=== PATIENT | male | born 1970 | race Caucasian/White ===

== ENCOUNTER → 2018-05-24 09:56 | Outpatient (CLI) | payer BC, MEDICAID, SELFPAY ==
--- NOTE | 2018-05-24 10:45 | MRI_ITS ---
STUDY: MRI BRAIN WITH AND WITHOUT CONTRAST (ATTENTION INTERNAL AUDITORY CANALS - I.A.C.'s) REASON FOR EXAM: Male, 48 years old. Tinnitus right ear, dizzy, s/p concussion 1 year ago. TECHNIQUE: Standardized multiplanar fat and water weighted pulse sequences were obtained. 8 ml of Gadavist contrast material was administered intravenously for the contrast portion of the examination. COMPARISON: March 01, 2009 FINDINGS: Normal bilateral temporal bones. Normal bilateral internal auditory canals. There is no demonstrated intracanalicular or cisternal vestibular schwannoma (acoustic neuroma). There is no enhancement of the bilateral VIIth or VIIIth cranial nerves. Normal bilateral cochlea, vestibules and semicircular canals. Normal size of the ventricles and extra-axial spaces for the patient's age. Normal white matter tracts of the supratentorial brain. Normal bilateral basal ganglia. Normal thalami. Normal flow voids within the major intracranial circulation suggesting patency by spin echo criteria. Normal venous enhancement. There is no enhancing intra-axial or extra-axial abnormality. There is no extra-axial fluid accumulation. Normal sella turcica, pituitary gland, infundibular stalk, optic chiasm and hypothalamus. Normal tectal plate and pineal gland. Normal midbrain, gerson and medulla. Again noted is the left cerebellar developmental venous anomaly. Normal basal cisterns. No demonstrated orbital abnormality, within the constraints of a routine brain study. Normal visualized paranasal sinuses. Normal calvarium and skull base. Normal visualized soft tissue structures. Normal visualized upper cervical spine. MRI/Brain W/WO Contrast IMPRESSION: There is no demonstrated intracanalicular or cisternal vestibular schwannoma (acoustic neuroma). Electronically Signed: Kirk Castro MD at 11:05 EST Tel , Service support ,
== END ==
PROVIDERS: Family Provider Preventive Medicine Occupational Medicine; PCP Preventive Medicine Occupational Medicine; Referring Provider Otolaryngology; Visit Provider Otolaryngology
DX: H93.19 Tinnitus, unspecified ear (principal)
CPT/HCPCS: 70553; A9585

== ENCOUNTER 2018-06-21 11:48 | Outpatient (RCR) | payer BC, MEDICAID, SELFPAY ==
--- NOTE | 2018-06-21 12:53 | HP.PTEVAL_ITS ---
Patient's Visit Information JULIANNA DEL VALLE III is a 48 year old M referred to Physical Therapy by Kris Cedeño, with a diagnosis of vertigo. Date of Evaluation: 06/21/18 Physical Therapist: Dmitry Renae DPT, OC - Visit Plan Frequency: 1x/Week Duration: 4-6 Weeks Plan: weekly as able to progress VOR and habituation as needed. Pt unable to make it in next week and therapist off the week after so will progress as instructed int he meanitme. Total 4-6 visits. - Subjective Findings: Saw neuro and recommended vestibular therapy. Gets ringing in R ear constant for a year and gets dizzy. Knocked self out a year ago after picking up a hammer and standing up and hitting head on door knocking self out. Once got bearings, got concussion diagnosis. Dizzyness is intermittent, caused by bending over, temperature changes. Sometimes loses balance. Feels loopyheaded all day daily. Gets dizzy for a a time of minute or two. Noticed it lying in bed rolling. Uses cane due to R hip tear and has used it since [place] for hip not for balance. No falls. R hip causes pain that keeps him up as does ringing in the ear. Trying to use white noise. Taking sleeping pills. BROWN now and then for last 6 months, stress makes it worse. Not working due to hip pain, will have surgery 07/25. 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 Can do basic ADLs right now but they take a while. Has one step into back door. - Pain R hip pain. Pain Intensity (Out of 10): 6 Pain Intensity Range: 6 - Objective - B hallpike aminata and roll test , no nystagmus, no dizzyness. C/S AROM WFL. Oculomotor: no nystagmus with gaze or head shake. pursuit are OK. Saccades horiz 20 seconds 3/10 for 20 seconds. VOR horiz 12 seconds 5/10 dizzy for 1 minute, vertical not as bad at 30 seconds. convergence normal. - skew eye deviation. - head thrust. Walks well and is I with trasnfers and gait is R antalgia and cane in R hand and will need until hip surgery. - Balance Scores Functional Gait Assessment Score: 25 % Disability: 16.6700 - Goals Goal 1:: Abolish dizzy feeling Goal Time Frame: 4-6 Weeks Goal 2:: Pt bend and recover without problems. Goal Time Frame: 4-6 Weeks - Rehabilitation Potential Physical Therapy Diagnosis: vertigo hypofunction vs central Rehabilitation Potential: Fair - Anticipated Interventions Patient/Client Instruction: Educate patient on: Condition, Plan of Care For the Purpose of:: To increase tolerance to activity/condition/position Other: to diminish dizzynes. Comment: habituiation and adapatation ex. For the Purpose of:: To improve muscle performance and motor function, To improve safety Other: to diminish dizzyness. Thank you for the opportunity to evaluate your patient. For Medicare and Medicare HMO plans, please review the plan of care and approve it. It will need to be FAXED BACK to us at [phone] for Medicare purposes. For Medicare only, by signing this I certify the plan of care. Please let me know if there are questions or concerns regarding this plan of care. Physician Signature: Date:
--- NOTE | 2018-09-05 08:06 | HP.PT.NRP ---
HP - Discharge Summary (1) - Patient Information JULIANNA DEL VALLE III was seen in my office for initial evaluation on 06/21/18. The following Plan of Care was established for this patient: Initial Frequency: 1x/Week Initial Duration: 4-6 Weeks - Anticipated Interventions Patient/Client Instruction: Educate patient on: Condition, Plan of Care For the Purpose of:: To increase tolerance to activity/condition/position Other: to diminish dizzynes. For the Purpose of:: To improve muscle performance and motor function, To improve safety Other: to diminish dizzyness. This patient was last seen in our office 06/21/18. Pertinent comments regarding their Physical therapy will appear below: Pt seen one visit for instruction in adaptation exercises. He cancelled his f/u and neglected to reschedule. At this point, it has been over two months adn I will discontinue due to nonattendance. At this point I will be discontinuing this patient from physical therapy. I would be happy to see this patient again in the future if found appropriate by the physician. Thank you! Dmitry Renae, DPT, OCS, CSCS
== END 2018-06-21 19:00 | disposition home or self-care (01) ==
LOC: PT 11:48
PROVIDERS: Family Provider Nurse Practitioner Family; PCP Nurse Practitioner Family; Referring Provider Otolaryngology; Visit Provider Otolaryngology
DX: R42 Dizziness and giddiness (principal)
CPT/HCPCS: 97162

== ENCOUNTER → 2020-05-14 07:15 | Outpatient (CLI) | payer MEDICAID, SELFPAY ==
[2020-05-06 10:48] VITALS: BMI 22.4
--- NOTE | 2020-05-14 07:15 | MRI_ITS ---
STUDY: MRI LUMBAR SPINE WITHOUT CONTRAST REASON FOR EXAM: Male, 50 years old. low back pain, injury 2 years ago TECHNIQUE: Standardized fat and water weighted pulse sequences were obtained in the sagittal and axial planes. COMPARISON: None FINDINGS: Lumbar lordosis preserved. No significant scoliosis. No acute fracture. No acute dislocation. No acute cortical destruction. Conus medullaris terminates normally at the L1 level. Normal paraspinal muscles. Sacrum intact. Normal aorta. Normal retroperitoneum. Congenitally short pedicles at the L3-4, L4-5 and L5-S1 levels contributing to mild central canal and neural foraminal narrowing. Last intervertebral disc will be labeled L5-S1 for the purposes of this examination. T12-L1: Normal endplates. Normal disc height, hydration and morphology. Normal bilateral facet joints. Normal central canal and bilateral lateral recesses. Normal bilateral intervertebral neural foramina. L1-2: Normal endplates. Normal disc height, hydration and morphology. Normal bilateral facet joints. Normal central canal and bilateral lateral recesses. Normal bilateral intervertebral neural foramina. L2-3: Normal endplates. Normal disc height, hydration and morphology. Normal bilateral facet joints. Normal central canal and bilateral lateral recesses. Normal bilateral intervertebral neural foramina. L3-4: Normal endplates. Disc bulge with minimal central canal narrowing. Normal bilateral facet joints. Normal bilateral lateral recesses. Mild neural foraminal narrowing. L4-5: Normal endplates. Minimal disc desiccation. Normal bilateral facet joints. Normal central canal and bilateral lateral recesses. Mild neural foraminal narrowing. L5-S1: Normal endplates. Normal disc height, hydration and morphology. Normal bilateral facet joints. Normal central canal and bilateral lateral recesses. Mild neural foraminal narrowing. MRI/Spine Lumbar (Routine) IMPRESSION: Intervertebral disc disease with mild central canal narrowing at L3-4 Mild neural foraminal narrowing at the L3-4 through L5-S1 levels Congenitally short pedicles contributing to mild central canal and neural foraminal narrowing Electronically Signed: Dmitry Patel DO at 9:22 EST Tel , Service support ,
== END ==
PROVIDERS: PCP Nurse Practitioner Family; Referring Provider Orthopaedic Surgery; Visit Provider Orthopaedic Surgery
DX: M54.5 Low back pain (principal); M54.16 Radiculopathy, lumbar region
CPT/HCPCS: 72148

== ENCOUNTER → 2021-12-30 | Outpatient (CLI) | payer MEDICAID, SELFPAY ==
--- NOTE | 2021-12-30 10:23 | MRI_ITS ---
STUDY: EXAMINATION - MRV BRAIN WITH CONTRAST REASON FOR EXAM: Male, 51 years old. cerebellar developmental venous malformation -- Perform head MRV with constrast (CPT 94478) TECHNIQUE: 3D [id number]-id-nbpeux (TOF) imaging was performed in a nabila MRI scanner, following administration of 17ml Dotarem via IV. COMPARISON: MRI of the brain dated DECEMBER 30, 2021 FINDINGS: Mildly to moderately dilated draining vein in the medial and anterior superior aspect of the left cerebellar lobe is associated with a tuft of smaller abnormally connected veins and ultimately connects to a draining cortical vein on the lateral aspect of the left parietal lobe is consistent with a venous malformation/venous angioma. Normal flow within the superior sagittal sinus. Normal flow within the superficial cortical veins. Normal flow within the paired internal cerebral veins, vein of Tony and straight sinus. Normal flow within the bilateral transverse and sigmoid sinuses. Normal flow within the bilateral jugular bulbs. MRI/MRA Head ONLY WITH Contrast IMPRESSION: 1. Mildly to moderately dilated draining vein in the medial and anterior superior aspect of the left cerebellar lobe is associated with a tuft of smaller abnormally connected veins and ultimately connects to a draining cortical vein on the lateral aspect of the left parietal lobe is consistent with a venous malformation/venous angioma. Electronically Signed: Peter Laguna MD at 15:07 EDT ,
--- NOTE | 2021-12-30 10:23 | MRI_ITS ---
STUDY: MRI BRAIN WITH AND WITHOUT CONTRAST REASON FOR EXAM: Male, 51 years old. Migraine headache; history TIA; venous malformatio -- Suspect venous malformation is venous angioma TECHNIQUE: Standardized multiplanar fat and water weighted pulse sequences were obtained. 17ml Dotarem via IV was administered for the contrast portion of the examination. COMPARISON: MRI of the brain dated May 24, 2018. MRV of the brain dated DECEMBER 30, 2021 FINDINGS: Small tuft of abnormally connected and dilated veins in the anterior medial aspect of the left cerebellar lobe demonstrates enhancement on the postcontrast portion of the study and is consistent with a venous angioma/malformation. The veins involving a 1.45 cm region of the left cerebellar lobe (see images through series 10. Normal size of the ventricles and extra-axial spaces for the patient''s age. There are a limited number of small white matter hyperintensities, distributed throughout the deep white matter tracts of the cerebral hemispheres, consistent with mild chronic white matter ischemic changes. There is no evidence for recent intracranial ischemia or other cause of cytotoxic edema on diffusion weighted imaging (DWI). Normal T2* images of the brain without demonstrated susceptibility artifact. There is no demonstrated hemosiderin stain. Normal bilateral basal ganglia. Normal thalami. There is no extra-axial fluid accumulation. Normal flow voids within the major intracranial circulation suggesting patency by spin echo criteria. Normal venous enhancement. There is no enhancing intra-axial or extra-axial abnormality. Normal sella turcica, pituitary gland, infundibular stalk, optic chiasm and hypothalamus. Normal tectal plate and pineal gland. Normal midbrain, gerson and medulla. Normal cerebellum. Normal basal cisterns. Normal bilateral temporal bones. Normal bilateral internal auditory canals. No demonstrated orbital abnormality, within the constraints of a routine brain study. Normal visualized paranasal sinuses. Normal calvarium and skull base. Normal visualized soft tissue structures. Normal visualized upper cervical spine. MRI/Brain W/WO Contrast IMPRESSION: 1. Small tuft of abnormally connected and dilated veins in the anterior medial aspect of the left cerebellar lobe demonstrates enhancement on the postcontrast portion of the study and is consistent with a venous angioma/malformation. The veins involving a 1.45 cm region of the left cerebellar lobe (see images through series 10. Electronically Signed: Peter Laguna MD at 15:08 EDT ,
--- NOTE | 2021-12-30 10:23 | MRI_ITS ---
STUDY: MRA OF THE HEAD WITH AND WITHOUT CONTRAST REASON FOR EXAM: Male, 51 years old. cerebellar developmental venous malformation -- CPT code 74695 TECHNIQUE: 3-D cuxn-ze-fyldel (TOF) imaging was performed with MIPs. IV 17ml Dotarem was administered for the contrast portion of this study. COMPARISON: MRI and MRV of the brain dated DECEMBER 30, 2021. FINDINGS: Normal bilateral petrous carotid arteries. Normal right cavernous carotid artery with a normal supraclinoid bifurcation. Normal left cavernous carotid artery with a normal supraclinoid bifurcation. Normal right A1 segments of the anterior cerebral artery. Normal left A1 segments of the anterior cerebral artery. Normal intact anterior communicating artery (ACOM). Normal bilateral A2 segments of the anterior cerebral arteries. Normal right M1 and M2 segments of the middle cerebral arteries, with a normal M1 bifurcation. Normal left M1 and M2 segments of the middle cerebral arteries, with a normal M1 bifurcation. Normal right posterior communicating artery (PCOM). Normal left posterior communicating artery (PCOM). Normal bilateral vertebral arteries. Normal basilar artery with a normal basilar bifurcation. The visualized bilateral superior cerebellar (SCA) arteries are normal. Normal bilateral P1, P2 and visualized P3 segments of the posterior cerebral arteries. There is no demonstrated aneurysm of the [place]. There is no major vessel occlusion or hemodynamically significant stenosis. There is no demonstrated abnormality of the visualized brain. Mildly to moderately dilated draining vein in the medial and anterior superior aspect of the left cerebellar lobe is associated with a tuft of smaller abnormally connected veins and ultimately connects to a draining cortical vein on the lateral aspect of the left parietal lobe is consistent with a venous malformation/venous angioma. MRI/MRA Head ONLY WITH & W/O Cont IMPRESSION: 1. Normal [place] without a demonstrated aneurysm or hemodynamically significant stenosis. 2. Mildly to moderately dilated draining vein in the medial and anterior superior aspect of the left cerebellar lobe is associated with a tuft of smaller abnormally connected veins and ultimately connects to a draining cortical vein on the lateral aspect of the left parietal lobe is consistent with a venous malformation/venous angioma. 3. No demonstrated arteriovenous malformation. Electronically Signed: Peter Laguna MD at 15:15 EDT ,
== END | disposition home or self-care (01) ==
LOC: MRI 10:18
PROVIDERS: PCP Nurse Practitioner Family; Referring Provider Psychiatry & Neurology Neurology; Visit Provider Psychiatry & Neurology Neurology
DX: D18.02 Hemangioma of intracranial structures (principal); G45.9 Transient cerebral ischemic attack, unspecified; G43.009 Migraine without aura, not intractable, without status migrainosus
CPT/HCPCS: 70545; 70546; 70553; A9575

== ENCOUNTER → 2022-01-01 | Outpatient (CLI) | payer MEDICAID, SELFPAY ==
[2022-01-01 12:25] LABS: Erythrocyte Sedimentation Rate 13 mm/hr (0-20)
[2022-01-01 13:00] LABS: Cholesterol 155 mg/dL (200); High Density Lipoprotein 90 mg/dL; Triglycerides 78 mg/dL; Very Low Density Lipoprotein 16 mg/dL (5-40)
[2022-01-02 13:07] LABS: ANTINUCLEAR ANTIBODIES DIRECT Negative (Negative)
[2022-01-07 13:07] LABS: Antithrombin 3 Function 68 % (75-135); Complement C3 111 mg/dL (82-167); Dilute Prothrombin Time (dPT) 30.5 sec (0.0-47.6); Dilute Russell Viper Venom 28.4 sec (0.0-47.0); PTT-LA 31.6 sec (0.0-51.9); Protein C Antigen 78 % (60-150); Protein S, Free 78 % (61-136); Thrombin Time 17.5 sec (0.0-23.0); dPT Confirm Ratio 1.11 Ratio (0.00-1.34)
[2022-01-07 17:19] LABS: Anti-Cardiolipin Ab, IgA, Qn < 9 APL U/mL (0-11); Anti-Cardiolipin Ab, IgG, Qn < 9 GPL U/mL (0-14); Anti-Cardiolipin Ab, IgM, Qn 16 MPL U/mL (0-12); Anti-Thrombin 3 AG, Immunol 53 % (72-124); Complement CH50 45 U/mL (>41); Interpretation Comment: (.); Protein C, Functional 78 % (73-180); Protein S, Funtional 67 % (63-140); Protein S, Total 63 % (60-150)
== END | disposition home or self-care (01) ==
LOC: MTLAB 10:42
PROVIDERS: PCP Nurse Practitioner Family; Referring Provider Nurse Practitioner Family; Visit Provider Nurse Practitioner Family
DX: G45.9 Transient cerebral ischemic attack, unspecified (principal)
CPT/HCPCS: 36415; 80061; 81240; 81241; 85300; 85301; 85302; 85303; 85305; 85306; 85652; 86038; 86147; 86160; 86162; 86225; 86235

== ENCOUNTER → 2023-01-25 | Outpatient (CLI) | payer MEDICAID, SELFPAY ==
--- NOTE | 2023-01-25 14:46 | CT_ITS ---
INDICATION: Sinus Congestion; R Facial Paresthesias EXAMINATION: CT SINUSES - CT Sinuses W/O Contrast Injection TECHNIQUE: Helically acquired images were obtained of the paranasal sinuses. A radiation dose optimization technique was used for this scan. IV Contrast dosage and agent: None RADIATION DOSAGE (If Supplied By Facility): CTDIvol = ( 33.06 ) mGy, DLP = ( 842.11 ) mGycm COMPARISON: MRI brain December 30, 2021 FINDINGS: FRONTAL SINUSES AND RECESSES: Clear. ETHMOID AIR CELLS: Clear. MAXILLARY SINUSES: Trace inferior mucoperiosteal thickening. OSTIOMEATAL COMPLEXES: Clear and normally formed. SPHENOID SINUSES: Clear. SPHENOETHMOIDAL RECESSES: Clear. ANCILLARY FINDINGS: NASAL TURBINATES: Unremarkable. NASAL SEPTUM: Mild to moderate rightward convex bowing of the mid to anterior septum. ORBITS: Unremarkable. VISUALIZED DENTITION: No periodontal osseous erosion. ANTERIOR CRANIAL FOSSA: Unremarkable. Incidental note of degenerative changes in the cervical spine, particularly involving the left C2-3 and C3-[address]/Sinus/Facial Bone IMPRESSION: Trace mucoperiosteal thickening in the bilateral maxillary antra. The paranasal sinuses are otherwise clear. Electronically Signed: Alden Guzman MD at 7:42 EDT Reading Location ID and State: [id number] / Unknown , Service support ,
== END | disposition home or self-care (01) ==
LOC: CT 14:45
PROVIDERS: PCP Nurse Practitioner Family; Referring Provider Psychiatry & Neurology Neurology; Visit Provider Psychiatry & Neurology Neurology
DX: R09.81 Nasal congestion (principal); R20.2 Paresthesia of skin
CPT/HCPCS: 70486

== ENCOUNTER → 2023-02-10 | Outpatient (CLI) | payer MEDICAID, SELFPAY ==
[2023-02-10 16:23] LABS: Platelet Count 284 K/mm3 (150-450); RET-HE 34.4 pg (30-35); Reticulocyte Count 1.56 % (0.5-1.5)
[2023-02-10 16:29] LABS: International Normalized Ratio 0.9; Prothrombin Time (Protime)PT. 12.1 SECONDS (11.7-14.9)
[2023-02-10 16:42] LABS: Erythrocyte Sedimentation Rate 10 mm/hr (0-20)
[2023-02-10 17:17] LABS: Amylase 44 U/L (25-115); CRP < 2.90 mg/L (0.0-3.0); Ferritin 34 ng/mL (26-388); Iron 120 ug/dL (65-175); Iron Binding Capacity,Total 423 ug/dL (250-450); LDH 175 U/L (87-241); Lipase 47 U/L (13-75); Thyroid Stim Hormone (TSH) 0.57 uIU/mL (0.358-3.74)
[2023-02-14 03:06] LABS: Anti-Centromere B Ab <0.2 AI (0.0-0.9); Anti-Chromatin <0.2 AI (0.0-0.9); Anti-Jo <0.2 AI (0.0-0.9); Anti-Scleroderma-70 AB <0.2 AI (0.0-0.9); Anti-dsDNA Ab <1 IU/mL (0-9); Beef <0.10 kU/L (Class 0); Chocolate <0.10 kU/L (Class 0); Clam <0.10 kU/L (Class 0); Codfish <0.10 kU/L (Class 0); Corn <0.10 kU/L (Class 0); Egg, White <0.10 kU/L (Class 0); Egg, Whole <0.10 kU/L (Class 0); Milk (Cow) <0.10 kU/L (Class 0); Peanut <0.10 kU/L (Class 0); Pork <0.10 kU/L (Class 0); RNP Ab <0.2 AI (0.0-0.9); SCALLOP <0.10 kU/L (Class 0); SESAME SEED <0.10 kU/L (Class 0); SJOGREN'S Anti-SS-A test < 0.2 AI (0.0-0.9); SJOGREN'S Anti-SS-B test < 0.2 AI (0.0-0.9); Shrimp <0.10 kU/L (Class 0); Smith Ab <0.2 AI (0.0-0.9); Soybean <0.10 kU/L (Class 0); Walnut, (Food) <0.10 kU/L (Class 0); Wheat <0.10 kU/L (Class 0)
[2023-02-15 17:07] LABS: Albumin 4.1 g/dL (2.9-4.4); Alpha-1-Globulins 0.2 g/dL (0.0-0.4); Alpha-2-Globulins 0.7 g/dL (0.4-1.0); Endomysial Antibody IgA Negative (Negative); Gamma Globulin 0.9 g/dL (0.4-1.8); Gastrin, Serum 58 pg/mL (0-115); Haptoglobin 143 mg/dL (29-370); Immunoglobulin A 129 mg/dL (90-386); Immunoglobulin G 569 mg/dL (603-1613); Immunoglobulin M 524 mg/dL (20-172); PROEL- TOTAL PROTEIN 6.9 g/dL (6.0-8.5); t-Transglutaminase IgA <2 U/mL (0-3)
== END | disposition home or self-care (01) ==
PROVIDERS: PCP Nurse Practitioner Family; Referring Provider Internal Medicine Gastroenterology; Visit Provider Internal Medicine Gastroenterology
DX: R19.7 Diarrhea, unspecified (principal)
CPT/HCPCS: 36415; 82150; 82728; 82784; 82941; 83010; 83516; 83540; 83550; 83615; 83690; 84165; 84443; 85045; 85610; 85652; 86003; 86005; 86140; 86225; 86235; 86255; 86334

== ENCOUNTER → 2023-02-15 | Outpatient (CLI) | payer MEDICAID, SELFPAY ==
[2023-02-19 13:08] LABS: Pancreatic Elastase, Fecal 54 (>200)
[2023-02-22 18:07] LABS: Calprotectin, Stool 12 ug/g (0-120); Fats, Neutral Normal (.); Fats, Total Normal (.)
== END | disposition home or self-care (01) ==
PROVIDERS: PCP Nurse Practitioner Family; Referring Provider Internal Medicine Gastroenterology; Visit Provider Internal Medicine Gastroenterology
DX: K58.0 Irritable bowel syndrome with diarrhea (principal)
CPT/HCPCS: 84110; 87493; 81050; 82274; 82653; 82705; 83630; 83993; 87506

== ENCOUNTER 2023-03-29 17:41 | Emergency (ER) | payer MEDICAID, SELFPAY ==
[2023-03-29 17:42] VITALS: BP 137/90; PULSE 93; RESP 18; TEMP 36.1; O2SAT 99; BMI 23.5
[2023-03-29 17:45] VITALS: RESP 14
--- NOTE | 2023-03-29 18:05 | EX.ED.UPPERE ---
HPI History of Present Illness HPI Narrative: Left hand injury along the metacarpal of the left small finger. Occurred about an hour ago. Patient [id number]. He was adjusting his spring on a garage door when a Lego hit him in his left hand causing a laceration along the metacarpal left small finger. Denies any other injuries. Tetanus up-to-date. Chief Complaint: Laceration Informant: patient and family Occured/Mechanism Mechanism/Context: Yes injury and Yes blunt trauma Onset/Context/Timing Onset: Hours Context: Sudden Onset Timing: Continuous Quality of Pain: Sharp Current Severity: Mild Maximum Severity: Mild Associated Symptoms Associated Symptoms: Negative for Parasthesia, Weakness or Loss of Funtion Narrative Narrative: 52-year-old male [id number] was adjusting a garage spring for his daughter at her home when it let go injuring his left hand and causing a laceration along the metacarpal of the left small finger. Tetanus Immunization: <5 years Prior similar symptoms: No Recent Illness/Hospitalization: No PFSH PFSH Medical History Abdominal cramping Alcohol abuse Anticardiolipin antibody positive Antithrombin 3 deficiency Anxiety Back problem Bone fracture Carotid atherosclerosis Depression Diarrhea Dysphagia Elevated liver enzymes Gastric reflux Headache Hearing problem High cholesterol Hip pain Hypertension Hypoglycemia IBS (irritable bowel syndrome) MGUS (monoclonal gammopathy of unknown significance) Migraines Proteinuria rotator cuff surgery, left TIA (transient ischemic attack) Tinnitus Home Medications eluxadoline 100 mg tablet 100 mg PO BID 05/06/20 [History Last Taken Unknown] hydroxyzine HCl 25 mg tablet 25 mg PO TID PRN sinus congestion/headache #90 tabs 11/18/22 [Rx Last Taken Unknown] isvwsh-ihhilgbp-qcjqbwb 40,000-126,000-168,000 unit capsule, delay rel (Zenpep) 1 cap PO BID #330 caps 03/08/23 [Rx Last Taken Unknown] rifaximin 550 mg tablet (Xifaxan) 550 mg PO TID #42 tabs 03/08/23 [Rx Last Taken Unknown] oxcarbazepine 150 mg tablet 150 mg PO BID #60 tabs 03/25/23 [Rx Last Taken Unknown] Allergy/AdvReac Type Severity Reaction Status Date / Time bee venom protein (honey bee) Allergy Severe Anaphylaxis Verified 03/29/23 17:43 [bees] cat dander Allergy Anaphylaxis Verified 03/29/23 17:43 procaine HCl [From Novocain] AdvReac Vomiting Verified 03/29/23 17:43 Family History Father Lung cancer Alcohol abuse Mother Cancer Surgical History H/O inguinal hernia repair H/O: knee surgery History of hip surgery History of rotator cuff surgery Normal colonoscopy (~04/22/18) ulnar nerve surgery Social History household members: children housing: house current occupational status: employed Smoking Status: Former smoker pack-years: 25 second hand exposure: No alcohol intake: current alcohol intake frequency: 3 or more drinks per day Alcohol type: beer details: daily substance use type: does not use what type of physical activity do you participate in: none blair/sikhism: Other seatbelt use: sometimes ROS ROS ED ROS Narrative No recent illness. Review of Systems ROS Unobtainable: Denies due to encephalopathy Constitutional Constitutional ED: Denies chills or fever(s) Eyes Eyes: Denies blurry vision ENT ENT ED: Denies ear pain Cardiovascular Cardiovascular: Denies chest pain Respiratory/Chest Respiratory/Chest: Denies cough or dyspnea Gastrointestinal Gastrointestinal: Denies abdominal pain Genitourinary Genitourinary ED: Denies dysuria or hematuria Musculoskeletal Musculoskeletal: Denies back pain Integumentary Denies abscess Psychiatric Psychiatric: Denies anxiety Endocrine Endocrinology: Denies cold intolerance Hematologic/Lymphatic Hematologic/Lymphatic: Denies easy bleeding or easy bruising Allergic/Immunologic Allergic/Immunologic ED: Denies mouth swelling, tongue swelling or urticaria EXAM Physical Exam Narrative Exam Narrative: 52-year-old male vital signs stable afebrile. HEENT exam unremarkable. Neck nontender. Back nontender. Lungs clear to auscultation. Heart regular rhythm no murmur. Rate about 90. Chest wall and ribs nontender. Abdomen soft nontender. Moving all 4 extremities. Neurovascular intact. Normal range of motion. Left hand specifically has tenderness along the proximal left small finger and metacarpal left small finger. He has a 2+ inch laceration along the medial side of his left hand lateral to the palm. No active bleeding. It will need repaired. Tender along the area. No infection or foreign body noted. Normal flexion extension. Normal sensation of the digits of the hand. Neurologically is awake and alert with no focal motor or sensory deficits. Const Vital Signs: 03/29/23 17:42 03/29/23 17:45 Temperature 97 F L Temperature Source Temporal Pulse Rate 93 Respiratory Rate 18 14 Blood Pressure 137/90 H Blood Pressure Mean 105 Pulse Ox 99 Oxygen Delivery Method Room Air Positive well nourished and well developed; Negative for obese, cachectic, contractures or unkempt General Appearance ED: well developed and NAD; Negative for unkempt, cachectic, contractures, cyanotic or diaphoretic Nutritional Appearance: Negative for cachectic or obese HEENT Reports moist mucous membranes normocephalic and atraumatic; Negative for trauma or tenderness Eyes PERRL and EOMs intact bilaterally General Eye ED: Negative for other Neck full ROM and supple General: Negative for tenderness Lymph Lymphatic: Negative for other Chest Wall inspection of chest normal and palpation of chest normal Chest: Negative for other Resp normal respiratory effort and clear to auscultation bilaterally Effort and Inspection: Negative for pain with movement Auscultation: Negative for rales, rhonchi or wheezes Cardio regular rate, regular rhythm, S1 normal heart sound, S2 normal heart sound and no murmurs Rate: Negative for bradycardia or tachycardic Rhythm: Negative for abnormal rhythm GI non-tender, non-distended and no masses Inspection: Negative for abdominal distention Auscultation: normoactive bowel sounds Palpation: soft; Negative for tender or guarding Bladder / Kidney Exam: No other Back/Spine no CVA tenderness General Back: Negative for CVA tenderness Cervical Spine: Negative for cervical spine tenderness Thoracic Spine / Upper Back: Negative for thoracic spinal tenderness Lumbar Spine / Lower Back: Negative for lumbar spinal tenderness Extremity normal to inspection and full ROM Extremity Narrative: Except left hand. Laceration on the medial side of his left hand long metacarpal of the small finger. Full flexion extension. Tender to the metacarpal and proximal phalanx. No deformity. Normal sensation. No active bleeding. No signs of infection. No foreign body. General Extremety ED: Negative for edema General Extremity: Negative for edema Neuro oriented x3, CN's II-XII intact bilaterally, moves all extremities, no focal motor deficits and no sensory deficits noted Sensorium / Orientation: alert, oriented to person, oriented to place and oriented to time; Negative for orientation impaired, lethargic or stuporous Motor Exam: strength 5/5 throughout Psych mental status grossly normal Appearance: Negative for unkempt Attitude: No agitated Mood & Affect: Negative for depressed, anxious or tearful Skin General Skin Exam: Negative for petechiae Lesions: no lesions Rashes: no rashes Trauma: laceration MDM MDM MDM Narrative Medical decision making narrative: 52-year-old male with a laceration to the left small finger along the metacarpal. X-ray being obtained to valuate for possible fracture. His tetanus is up-to-date. History & Record Review Discussion w/independent historian: Patient and Family Radiography Diagnostic Testing: Left hand x-ray, 3 views, interpreted by myself shows no acute fracture. No foreign body. No dislocation. Procedures Lacerations Left hand laceration repair:: Length: 2 in Depth: Sub Q Shape: Linear Laceration repair: Irrigated, Lidocaine, Local and Skin sutures Number of Sutures/Left Hand: 4 Suture Information: Ethilon, Simple and 4-0 Comment: Left small finger laceration along the metacarpal. Approximately 1/2 to 2 inches. Local anesthetized plain lidocaine. Cleaned with Shur-Clens. Washed and irrigated with saline. Explored. Involve the skin and subcu tissue. Closed using 4 simple erupted 4-0 Ethilon sutures. Proper hemostasis and wound closure obtained. Patient tolerated procedure well. He was instructed on wound care and suture removal in 10 days. Discharge Plan Triage Chief Complaint: Laceration ED Provider: Dwight Julio Dx/Rx/DC Orders Clinical Impression: Laceration of hand, left Instructions: ED Laceration, Hand: All Closures Prescriptions: No Action eluxadoline 100 mg tablet 100 mg PO BID Patient Comments: take 1 tablet by mouth twice a day with food for IBS hydroxyzine HCl 25 mg tablet 25 mg PO TID PRN (Reason: sinus congestion/headache) Qty: 90 5RF oxcarbazepine 150 mg tablet 150 mg PO BID Qty: 60 5RF Zenpep 40,000-126,000- 168,000 unit capsule,delayed release(DR/EC) 1 cap PO BID Qty: 330 0RF Rx Instructions: take 1-2 with snacks and 2-3 with meals. max of 3 meals a day and 1 snack. Xifaxan 550 mg tablet 550 mg PO TID Qty: 42 0RF Primary Care Provider: Sandy Saleh NP Referrals: Sandy Saleh NP, RN [facility] [Primary Care Provider] - 10 Day for suture removal Activity Restrictions/Additional Instructions: Ice and elevate. Motrin and Tylenol for pain. Stitches out in 10 days. Watch for any signs of infection such as redness, pus, fever, swelling or streaks of seen return. Disposition Disposition: Home, Self Care
--- NOTE | 2023-03-29 18:08 | RAD_ITS ---
INDICATION: trauma EXAMINATION/TECHNIQUE: X-RAY - LEFT XR Hand Min 3 Views 3 VIEWS COMPARISON: FINDINGS: No acute fracture or dislocation. No destructive bone changes. Joint spaces are well-maintained. Normal alignment. Soft tissues are unremarkable. No radiopaque foreign body or soft tissue gas. RAD/Hand Min 3 Views IMPRESSION: Negative. Electronically Signed: Torrie Vera MD at 18:38 EDT [place] Location ID and State: [id number] / Tel , Service support ,
[2023-03-29] MEDS: Lidocaine 1% (20 ml mdv) 20 ML Vial 10 ML INFILT (18:09)
[2023-03-29] MEDS: Ibuprofen 600 MG Tablet PO (18:38)
[2023-03-29 18:44] VITALS: PULSE 69; RESP 17; O2SAT 98
== END 2023-03-29 18:51 | disposition home or self-care (01) ==
LOC: ED 18:48
PROVIDERS: Emergency Provider Emergency Medicine; PCP Nurse Practitioner Family; Visit Provider Emergency Medicine
DX: S61.412A Laceration without foreign body of left hand, initial encounter (principal); Z87.891 Personal history of nicotine dependence; X58.XXXA Exposure to other specified factors, initial encounter; Z86.73 Personal history of transient ischemic attack (TIA), and cerebral infarction without residual deficits
CPT/HCPCS: 12001; 73130; 99283

== ENCOUNTER 2023-04-29 07:56 | Day surgery (SDC) | payer MEDICAID, SELFPAY ==
[2023-04-29 08:32] VITALS: BP 132/97; PULSE 68; RESP 18; TEMP 36.4; O2SAT 98; BMI 24.0
[2023-04-29] MEDS: Lactated Ringers 1,000 ML 15 ML IV (08:39)
--- NOTE | 2023-04-29 09:15 | COLBX_PTH ---
PATIENT: JULIANNA DEL VALLE III LOC: EN U#:[id number] AGE/SX: 52/M ROOM: RE04/29/[address]: Dr. Harmeet Sauceda DO : 1970 BED: DIS: 04/29/2023 SPEC #: [id number] RECD: 04/29/23 12:10 STATUS: DELFINA REEdith #: [id number] ROBERTO: 04/29/23 09:[address]: Harmeet Sauceda DEPT: SURGICAL PATHOLOGY RECD BY: Sheirce Frankel ENTERED: 04/29/23 13:01 SP TYPE: COLON BX OT DR: Sandy Saleh, [employer] Tissues: A - Ileum, NOS B - COLON BIOPSY Procedures: Surgery Specimen Level IV HEADER OPERATION: Colonoscopy with biopsy PRE-OP DIAGNOSIS: Diarrhea TISSUE SUBMITTED: A - Terminal ileum biopsy, B - Random colon biopsy MICROSCOPIC DIAGNOSIS A. Terminal ileum, biopsy: Fragments of small intestinal mucosa, no pathologic diagnosis. B. Colon, random biopsy: Fragments of colonic mucosa, no pathologic diagnosis. VALE:pavithra 04/30/2023 MICROSCOPIC DESCRIPTION Slides are reviewed. GROSS DESCRIPTION A - Received in fixative is one container labeled with the patient's name and designated terminal ileum biopsy. The specimen consists of two irregular fragments of light delacruz soft tissue that in aggregate measure 0.6 x 0.3 x 0.1 cm. The specimen is totally submitted in one cassette. B - Received in fixative is one container labeled with the patient's name and designated random colon biopsy. The specimen consists of multiple irregular fragments of light delacruz soft tissue that in aggregate measure 2.0 x 0.8 x 0.1 cm. The specimen is totally submitted in one cassette. / VALE:pavithra 04/29/2023 TC:4 [facility]: [id number] x2
--- NOTE | 2023-04-29 09:23 | HP.PCM_ITS ---
History and Physical Date of Admission: 04/29/23 JULIANNA DEL VALLE, is a 52 M who presents to the office today for initial consult. PCP OV 11.10.22 to discuss previously diagnosed IBS-D. Previously established with GI who started him on medication (loperamide and viberzi) and reached a point where they did not feel they could help further. He does not want to resume SSRI. ?EGD 11.29.19?OSH Large Schatzki ring, balloon dilation, pathology nonspecific reactive changes.?Biochemical 08.25.22?CMP, LFT, lipids? ? Pt diagnosed with IBS-D 2 years ago. Currently taking Loperamide and Viberzi. Does not have any abdominal pain or cramping on medication but does still have diarrhea a few times a week. Has concerns about fpc effects of Viberzi therefore would like to try another medication. Did have extensive work up years ago that was inconclusive. Does have hx of GERD. Sx controlled with daily omeprazole. ROS Const Constitutional: Positive for headache(s); No fatigue ENT ENT: Positive for headache(s); No difficulty swallowing Gastro GI: Positive for bloating, constipation, diarrhea, heartburn and excessive flatus; No abdominal pain, belching, change in bowel habits, change in stool character, coffee ground emesis, cramping, difficulty swallowing, feeling full early, incontinent of stools, Vomiting blood/hematemesis, Blood in stool, loose stools, Black,tarry stools, nausea/dyspepsia, pain with swallowing, vomiting or other Musc Musculoskeletal: Positive for back pain, Arthritis and restless legs; No joint pain Skin Skin: No yellowing of the eye or itchy eyes Neuro Neurology: Positive for headache(s) and restless legs Psych Psychiatric: Positive for anxiety and No depression Endo Endocrine: No fatigue Aller/Imm Allergy/Immunologic: No itchy eyes Torrey/Lymp Hematologic/Lymphatic: No easy bleeding or easy bruising Exam Const General: cooperative and comfortable Nutritional Appearance: average body habitus and well nourished HENTX Head: normal to inspection Ears: hearing grossly normal bilaterally Nose: external nose normal Face and sinus: normal facial exam Mouth: oral mucosae normal Throat: posterior oropharynx normal Eyes General: appearance normal, both eyes and all related structures Neck Neck: normal visual inspection Chest Chest palpation & inspection: normal inspection of the chest and normal palpation of entire chest wall Resp Effort & Inspection: normal respiratory effort Auscultation: Bilateral: Clear to Auscultation Cardio Palpation: normal PMI Rate: regular rate Rhythm: regular rhythm GI Inspection: normal to inspection Auscultation: normal bowel sounds Percussion: normal to percussion Palpation: no hepatosplenomegaly Skin General: no rashes or lesions noted Neuro General: patient alert Extrem General: normal to inspection Psych Affect: normal affect Quality Reporting Tobacco Screening ([facility] 138) Smoking Status: Former smoker Assessment and Plan Assessment and Plan (1) Diarrhea: Status: Acute Qualifiers: Diarrhea type: functional diarrhea Qualified Code(s): K59.1 - Functional diarrhea Plan: 52-year-old male medical history notable for IBS with diarrhea and dyslipidemia. He is an ex-smoker quit over 10 years earlier. Patient suffered a TIA in May 2020 that manifested with slurred speech, right facial droop and right-sided facial tingling and numbness, right arm heaviness and gait imbalance. His symptoms resolved in less than 24 hours. He had MRI did not show changes to suggest acute intracranial pathology (chronic small vessel cerebrovascular disease was noted) and an incidental cerebellar developmental venous malformation was noted. Since then he has been on low-dose aspirin for stroke prophylaxis and has had no recurrences. He has no prior history of venous thromboembolic disease. There is no known family history of hereditary hypercoagulability although the patient's father prior to passing with lung cancer was on long-term systemic anticoagulation for some vascular disease. He was evaluated by neurology for recurrent headaches possible migraines and a hypercoagulability panel in December 2021 based on the earlier history was obtained that showed 2 main abnormalities: 1. An indeterminate anticardiolipin IgM antibody of 16 (negative less than 13, indeterminate 13-20, high positive over 80). 2. A mildly decreased decreased Antithrombin III He has been diagnosed with IBS with diarrhea after normal colonoscopy approximately 6 years ago. He is being followed by Dr. Grissom. He was placed on Viberzi and Imodium for his constant diarrhea. He said he had stool studies but did not show any signs infection. He also said his colonoscopy was normal without any intraluminal pathology. His weight has been stable. He denies any fevers, arthralgia, arthritis, lower GI bleeding. Differential diagnosis for his diarrhea does include IBS with diarrhea, m alabsorptive diarrhea secondary to celiac disease, small vessel vasculitis, inflammatory bowel disease, microscopic colitis. He will undergo stool testing and biochemical testing. We will also get MR enterography. We will also get IBD SGI from [facility]. He will follow-up after we have the work-up complete for recommendations. Orders: Orders Allergen, Food Profile Today R19.7 - Diarrhea, unspecified Allergen, Rast Food Profile Today R19.7 - Diarrhea, unspecified Ferritin Today R19.7 - Diarrhea, unspecified Iron Binding Capacity,Total Today R19.7 - Diarrhea, unspecified Retic Panel Count Today R19.7 - Diarrhea, unspecified Iron Today R19.7 - Diarrhea, unspecified Haptoglobin Today R19.7 - Diarrhea, unspecified Fecal Fat, Qualitative Today R19.7 - Diarrhea, unspecified Amylase Today R19.7 - Diarrhea, unspecified Lipase Today R19.7 - Diarrhea, unspecified LDH Today R19.7 - Diarrhea, unspecified EDUARDO + Protein Elect, Serum Today R19.7 - Diarrhea, unspecified INGA Comprehensive Panel Today R19.7 - Diarrhea, unspecified Celiac Disease Profile Today R19.7 - Diarrhea, unspecified CRP Today R19.7 - Diarrhea, unspecified Erythrocyte Sed Rate Today R19.7 - Diarrhea, unspecified Prothrombin Time w/INR Today R19.7 - Diarrhea, unspecified ENTERIC PATHOGEN PANEL STOOL Today K58.9 - Irritable bowel syndrome without diarrhea, R19.7 - Diarrhea, unspecified CDIFF (PCR) Today R19.7 - Diarrhea, unspecified Calprotectin, Stool Today R19.7 - Diarrhea, unspecified Pancreatic Elastase, Fecal Today R19.7 - Diarrhea, unspecified Stool Occult Blood iFOB Today R19.7 - Diarrhea, unspecified Stool Lactoferrin/WBC Today K58.9 - Irritable bowel syndrome without diarrhea, R19.7 - Diarrhea, unspecified Thyroid Stim Hormone (TSH) Today R19.7 - Diarrhea, unspecified Miscellaneous Lab Procedure Today R19.7 - Diarrhea, unspecified Gastrin, Serum Today R19.7 - Diarrhea, unspecified Miscellaneous Lab Procedure 2 Today R19.7 - Diarrhea, unspecified I have examined the patient and the H&P has been reviewed. There are no clinical changes since date of exam.
[2023-04-29 09:52] VITALS: BP 107/72; BP 132/97; PULSE 81; RESP 16; TEMP 36.4; O2SAT 99
--- NOTE | 2023-04-29 09:53 | OP.COLON_ITS ---
Patient Name: Michael Noble Procedure Date: 04/29/2023 9:21 AM Date of : 1970 Age: 52 Procedure: Colonoscopy Indications: Screening for colorectal malignant neoplasm Providers: Harmeet Sauceda DO Referring MD: Sandy Saleh Medicines: Monitored Anesthesia Care Patient Profile: This is a 52 year old male. Refer to note in patient chart for documentation of history and physical. Last Colonoscopy: date unknown. Unable to locate last colonoscopy report. Complications: No immediate complications. Procedure: Pre-Anesthesia Assessment: - Prior to the procedure, a History and Physical was performed, and patient medications and allergies were reviewed. The patient is competent. The risks and benefits of the procedure and the sedation options and risks were discussed with the patient. All questions were answered and informed consent was obtained. Patient identification and proposed procedure were verified by the physician in the pre-procedure area. Mental Status Examination: alert and oriented. Airway Examination: normal oropharyngeal airway and neck mobility. Respiratory Examination: clear to auscultation. CV Examination: normal. Prophylactic Antibiotics: The patient does not require prophylactic antibiotics. Prior Anticoagulants: The patient has taken no anticoagulant or antiplatelet agents. ASA Grade Assessment: II - A patient with mild systemic disease. After reviewing the risks and benefits, the patient was deemed in satisfactory condition to undergo the procedure. The anesthesia plan was to use monitored anesthesia care (MAC). Immediately prior to administration of medications, the patient was re-assessed for adequacy to receive sedatives. The heart rate, respiratory rate, oxygen saturations, blood pressure, adequacy of pulmonary ventilation, and response to care were monitored throughout the procedure. The physical status of the patient was re-assessed after the procedure. After I obtained informed consent, the scope was passed under direct vision. Throughout the procedure, the patient's blood pressure, pulse, and oxygen saturations were monitored continuously. The colonoscope was introduced through the anus and advanced to the terminal ileum. The colonoscopy was performed without difficulty. The patient tolerated the procedure well. The quality of the bowel preparation was good. Scope In: 9:29:33 AM Scope Withdrawal Time 0 hours 12 minutes 21 seconds Scope Out: 9:45:28 AM Total Procedure Duration Time 0 hours 15 minutes 55 seconds Findings: The perianal and digital rectal examinations were normal. The transverse colon was moderately redundant. Advancing the scope required changing the patient's position. An area of mildly congested mucosa was found in the recto-sigmoid colon, in the sigmoid colon and in the transverse colon. Biopsies were taken with a cold forceps for histology. Verification of patient identification for the specimen was done. Estimated blood loss was minimal. A localized area of the terminal ileum was congested. Biopsies were taken with a cold forceps for histology. Verification of patient identification for the specimen was done. Estimated blood loss was minimal. A few small-mouthed diverticula were found in the recto-sigmoid colon, sigmoid colon, transverse colon and ascending colon. Impression: - Redundant colon. - Congested mucosa in the recto-sigmoid colon, in the sigmoid colon and in the transverse colon. Biopsied. - Congested mucosa in the terminal ileum. Biopsied. Recommendation: - Discharge patient to home. - Resume previous diet. - Continue present medications. - Await pathology results. - Repeat colonoscopy in 5 years for surveillance based on pathology results. Procedure Code(s): --- Professional --- 24611, Colonoscopy, flexible; with biopsy, single or multiple CPT copyright 2021 [employer]. All rights reserved. The codes documented in this report are preliminary and upon director of vital statistics review may be revised to meet current compliance requirements. Harmeet Sauceda DO 04/29/2023 9:53:16 AM This report has been signed electronically. Number of Addenda: 0 Note Initiated On: 04/29/2023 9:21 AM
--- NOTE | 2023-04-29 09:53 | OP.CCLET_ITS ---
04/29/2023 Sandy Saleh Re : Colonoscopy procedure for Michael Noble Dear Therese This procedure was performed on April. My impressions and recommendations are as follows: Impressions : - Redundant colon. - Congested mucosa in the recto-sigmoid colon, in the sigmoid colon and in the transverse colon. Biopsied. - Congested mucosa in the terminal ileum. Biopsied. Recommendations : - Discharge patient to home. - Resume previous diet. - Continue present medications. - Await pathology results. - Repeat colonoscopy in 5 years for surveillance based on pathology results. My findings are described in the full procedure note, which is enclosed. If I can be of further assistance, please feel free to contact me at . Sincerely, Harmeet Sauceda, 04/29/2023 9:53:16 AM This report has been signed electronically.
[2023-04-29 09:55] VITALS: BP 105/68; BP 132/97; PULSE 68; RESP 16; O2SAT 99
[2023-04-29 10:00] VITALS: BP 107/69; BP 132/97; PULSE 64; RESP 16; O2SAT 100
[2023-04-29 10:04] VITALS: BP 111/82; BP 132/97; PULSE 64; RESP 16; TEMP 37.3; O2SAT 99
[2023-04-29 10:31] VITALS: BP 132/97
== END 2023-04-29 10:36 | disposition home or self-care (01) ==
LOC: EN 07:57 → AC 07:58
PROVIDERS: PCP Nurse Practitioner Family; Referring Provider Nurse Practitioner Family; Visit Provider Internal Medicine Gastroenterology
PROC: 0DJD8ZZ Inspection of Lower Intestinal Tract, Via Natural or Artificial Opening Endoscopic (ICD-10-PCS; CPT 45378; principal; 2023-04-29 09:10)
DX: K63.89 Other specified diseases of intestine (principal); R19.7 Diarrhea, unspecified; Q43.8 Other specified congenital malformations of intestine; Z87.891 Personal history of nicotine dependence; G47.30 Sleep apnea, unspecified
CPT/HCPCS: 45380; 88305; J7120

== ENCOUNTER 2023-07-28 14:43 | Emergency (ER) | payer MEDICAID, SELFPAY ==
[2023-07-28 14:46] VITALS: BP 148/96; PULSE 73; RESP 18; TEMP 36.3; O2SAT 100
[2023-07-28 15:55] VITALS: BMI 24.3
[2023-07-28 16:00] VITALS: BP 142/91; PULSE 77; RESP 16; O2SAT 98
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
[2023-07-28] MEDS: Morphine 4 MG/ML Syringe IV (16:35)
[2023-07-28] MEDS: Ondansetron 4 MG/2 ML Vial IV (16:35)
[2023-07-28] MEDS: 0.9% Normal Saline (1000mL) 1,000 ML 150 ML IV (16:35)
[2023-07-28 16:49] LABS: Absolute Lymphocyte Count 1.39 X10^3/uL (0.83-4.51); Basophil# 0.06 X10^3/uL; Basophil% 0.8 % (0-1); Eosinophil# 0.09 X10^3/uL; Eosinophils% 1.3 % (0-5); Hematocrit 43.3 % (40-54); Hemoglobin 14.5 g/dL (13.0-16.5); Lymphocyte # 1.39 X10^3/ul (0.83-4.51); Lymphocyte % 19.5 % (19-41); Mean Corp Hgb Conc 33.5 g/dL (32-36); Mean Corpuscular Hgb 31.3 pg (27.0-32.0); Mean Corpuscular Volume 93.5 fL (80-94); Mean Platelet Vol. 9.3 fl (6.2-12.0); Monocyte# 0.57 X10^3/uL; NRBC Flagged by Analyzer 0 % (0-5); Neutrophil # 4.96 X10^3/uL (2.7-7.7); Neutrophil % 69.8 % (47-70); Platelet Count 269 K/mm3 (150-450); RBC Distribution Width CV 12.1 % (11.6-14.6); RBC Distribution Width SD 41.8 fl (35.1-43.9); Red Blood Count 4.63 M/mm3 (4.6-6.2); White Blood Count 7.1 K/mm3 (4.4-11.0)
[2023-07-28 16:57] LABS: Anion Gap 3 (5-15); BUN 9 mg/dL (7-18); BUN/Creat Ratio 9.9 RATIO (10-20); Chloride 110 mmol/L (98-107); Creatinine, Serum 0.91 mg/dL (0.70-1.30); EST Glomerular Filtration Rate 92 mL/min (>60); Est Glom Filt Rate - Afr Amer 112 mL/min (>60); Estimated Creatinine Clearance 104.87 ml/min; Glucose 94 mg/dL (74-106); Potassium 3.9 mmol/L (3.5-5.1); Sodium Level 141 mmol/L (136-145)
[2023-07-28 17:03] LABS: Prothrombin Time (Protime)PT. 13.1 SECONDS (11.7-14.9)
--- OUTSIDE RECORDS SUMMARY | 2023-07-28 17:07 | XMS RPT_ITS | CCD ---
Author Name Unknown Address [id number] [place] [address] Organization [facility] Care Team Providers Care Router Setter Name Role Phone Thuy Srinivasan Unavailable Unavailable PROVIDER, UNKNOWN Unavailable Unavailable No, PCP Unavailable Unavailable Thuy Srinivasan Unavailable Unavailable PROVIDER, UNKNOWN Unavailable Unavailable No, PCP Unavailable Unavailable Pepe Del Rio Unavailable Unavailable PROVIDER, UNKNOWN Unavailable Unavailable No, PCP Unavailable Unavailable Selvin Lopez Primary Care Provider [phone] Yasmin Villatoro Unavailable Unavailable Sandy Viera Unavailable Unavailable Jeromy Chin PA-C Unavailable Selvin Lopez Primary Care Provider [phone] SANDY DANIEL Primary Care Physician Felicia PT, Marielle Unavailable Unavailable SANDY DANIEL Primary Care Physician Sandy Viera Primary Care Provider [phone] Sandy Viera Primary Care Provider [phone] ADEBAYO BALL Referring Unavailable SANDY VIERA Primary Care Unavailable ANIRUDH VYAS Attending Unavailable SANDY VIERA Primary Care Unavailable ADEBAYO BALL Attending Unavailable SANDY VIERA Primary Care Unavailable KRYSTINA ECHEVARRIA, JOSE Hunter Attending Unavail able SANDY DANIEL Primary Care Unavail able SANDY DANIEL Attending Unavail able MAXIMILIANO PEREIRA SANDY Primary Care Unavail able Allergies Allergy Classification Reported Allergen(s) Allergy Type Date of Onset Reaction(s) Facility (8 sources) [place]; Translations: [procaine] Drug Allergy 8 Nausea And Vomiting [facility] Work Phone: (2 sources) Iodides Propensity to adverse reactions to drug 0 Nausea And Vomiting [facility] Work Phone: (1 source) STINGING INSECTS; Translations: [STINGING INSECTS] allergy to substance 8 anaphylaxis [facility] Work Phone: (1 source) DAIRY; Translations: [DAIRY] food allergy 8 GI issues [facility] Work Phone: (1 source) CAT DANDER; Translations: [CAT DANDER] allergy to substance 8 sneezing [facility] Work Phone: (4 sources) Bee/Wasp/Ant venom Allergy to substance Swelling [facility] (4 sources) Animal Dander Allergy to substance Swelling [facility] (4 sources) Honey bee venom Propensity to adverse reactions 3 [facility] (6 sources) Lactose (non-medical use) Propensity to adverse reactions 3 [facility] (6 sources) Other Propensity to adverse reactions 3 [facility] (2 sources) bee venom Propensity to adverse reactions 3 [facility] (2 sources) Iodinated Contrast Media Drug Intolerance 0 Nausea And Vomiting [facility] Medications Current Medications Medication Drug Class(es) Dates Sig (Normalized) Sig (Original) amylase 949443 unt / lipase 93089 unt / protease [id number] unt delayed release oral capsule (1 source) Start: 04-07-2023 take 1 capsule by mouth four times daily at mealtime Zenpep 40,000 units-126,000 units-168,000 units oral delayed release capsule Dose = 2 cap(s), Oral, QID, with each meal and one w/ snacks. No more than 10 daily, 0 Refill(s) Start Date: 04/07/23 Status: Ordered aspirin 81 mg chewable tablet (3 sources) Platelet Aggregation Inhibitor, Nonsteroidal Anti-inflammatory Drug Start: 05-28-2020 aspirin 81 mg oral tablet, chewable Dose : 81 mg = 1 tab(s), Oral, qDay, 0 Refill(s) Start Date: 05/28/20 Status: Ordered Completed/Discontinued Medications Medication Drug Class(es) Dates Sig (Normalized) Sig (Original) 2 ml dicyclomine hydrochloride 10 mg/ml injection (6 sources) Anticholinergic Start: 10-21-2022 End: 10-21-2022 dicyclomine (Bentyl) injection 20 mg Problems Active Problems Problem Classification Problem Date Documented Da te Episodic/Chronic Alcohol-related disorders (2 sources) Alcohol abuse 04-27-2022 Chronic Anxiety disorders (8 sources) Anxiety; Translations: [Mixed anxiety and depressive disorder] 02-08-2019 Chronic Disorders of lipid metabolism (4 sources) Hyperlipidemia 10-10-2020 Chronic Past or Other Problems Problem Classification Problem Date Documented Da te Episodic/Chronic Abdominal pain (1 source) Generalized abdominal pain; Translations: [Intermittent generalized abdominal pain] Episodic Intestinal infection (4 sources) Viral gastroenteritis; Translations: [Viral intestinal infection, unspecified] Onset: 10-21-2022 Episodic Noninfectious gastroenteritis (1 source) Chronic diarrhea; Translations: [Chronic diarrhea] Episodic Other gastrointestinal disorders (1 source) Heartburn; Translations: [Heartburn] Episodic Other gastrointestinal disorders (1 source) Dysphagia; Translations: [Dysphagia] Episodic Other gastrointestinal disorders (1 source) Personal history of other diseases of the digestive system; Translations: [History of irritable bowel syndrome] Episodic Other non-traumatic joint disorders (1 source) Instability of joint of pelvis; Translations: [Other instability, right hip] Onset: 01-06-2019 01-06-2019 Episodic Other non-traumatic joint disorders (1 source) Femoral acetabular impingement; Translations: [Other specified joint disorders, right hip] Onset: 04-06-2018 04-06-2018 Episodic Other upper respiratory infections (1 source) Upper respiratory infection 04-09-2021 Episodic Screening and history of mental health and substance abuse codes (2 sources) H/O: anxiety state; Translations: [H/O: depression] Episodic Sprains and strains (4 sources) Strain of muscle, fascia and tendon of right hip, initial encounter; Translations: [Strain of muscle of lower limb] Onset: 12-03-2017 02-16-2020 Episodic Unclassified (1 source) Problem Results Test Name Value Interpretation Reference Range Facil ity Vital Signs Date Time Vital Sign Value Performing Clinician Facility 05-18-2023 13:32-0500 Diastolic blood pressure 81 mm[Hg] Anirudh Vyas MD Work Phone: [facility] 05-18-2023 13:32-0500 Heart rate 66 /min Anirudh Vyas MD Work Phone: [facility] 05-18-2023 13:32-0500 Respiratory rate 16 /min Anirudh Vyas MD Work Phone: [facility] 05-18-2023 13:32-0500 SaO2% (BldA) [Mass fraction] 99 % Anirudh Vyas MD Work Phone: [facility] 05-18-2023 13:32-0500 Systolic blood pressure 138 mm[Hg] Anirudh Vyas MD Work Phone: [facility] 05-18-2023 12:54-0500 Body height 185.4 cm Anirudh Vyas MD Work Phone: [facility] 05-18-2023 12:54-0500 Body mass index (BMI) [Ratio] 24.8 kg/m2 Anirudh Vyas MD Work Phone: [facility] 05-18-2023 12:54-0500 Body temperature 98.01 [degF] Anirudh Vyas MD Work Phone: [facility] 05-18-2023 12:54-0500 Body weight 85.28 kg Anirudh Vyas MD Work Phone: [facility] 05-17-2023 15:41-0500 Body height 185.4 cm JOSE FLAHERTY MD [facility] 05-17-2023 15:41-0500 Body temperature 98.78 [degF] JOSE FLAHERTY MD [facility] 05-17-2023 15:41-0500 Body weight 86 kg JOSE FLAHERTY MD [facility] 05-17-2023 15:41-0500 Diastolic Blood Pressure Non-Invasive 88 1 JOSE FLAHERTY MD [facility] 05-17-2023 15:41-0500 Heart rate 71 /min JOSE FLAHERTY MD [facility] 05-17-2023 15:41-0500 Respiratory rate 18 /min JOSE FLAHERTY MD [facility] 05-17-2023 15:41-0500 Systolic Blood Pressure Non-Invasive 129 1 JOSE FLAHERTY MD [facility] 10-21-2022 19:55-0400 Body height 185.4 cm Adebayo Ball MD Work Phone: [facility] [employer] 10-21-2022 19:55-0400 Body mass index (BMI) [Ratio] 25.73 kg/m2 Adebayo Ball MD Work Phone: [facility] [employer] 10-21-2022 19:55-0400 Body temperature 99 [degF] Adebayo Ball MD Work Phone: [facility] [employer] 10-21-2022 19:55-0400 Body weight 88.45 kg Adebayo Ball MD Work Phone: [facility] [employer] 10-21-2022 19:55-0400 Diastolic blood pressure 102 mm[Hg] Adebayo Ball MD Work Phone: [facility] [employer] 10-21-2022 19:55-0400 Heart rate 119 /min Adebayo Ball MD Work Phone: [facility] [employer] 10-21-2022 19:55-0400 Respiratory rate 18 /min Adebayo Ball MD Work Phone: [facility] [employer] 10-21-2022 19:55-0400 SaO2% (BldA) [Mass fraction] 99 % Adebayo Ball MD Work Phone: [facility] 10-21-2022 19:55-0400 Systolic blood pressure 139 mm[Hg] Adebayo Ball MD Work Phone: [facility] NEGATED: Highlighted [id number] 09:43-0500 Body height 185.42 cm Maddie Truong AT [facility] Work Phone: NEGATED: Highlighted [id number] 09:43-0500 Body height 185 cm Maddie Truong AT [facility] Work Phone: NEGATED: Highlighted [id number] 09:43-0500 Body mass index (BMI) [Ratio] 25.16 kg/m2 Maddie Rtuong AT [facility] Work Phone: NEGATED: Highlighted [id number] 09:43-0500 Body weight 86.18 kg Maddie Truong AT [facility] Work Phone: NEGATED: Highlighted [id number] 09:43-0500 Body weight 86 kg Maddie Truong AT [facility] Work Phone: Encounters Encounter Date Encounter Type Care Provider Facility Start: 05-18-2023 End: 05-18-2023 [facility]: 05-18-2023 End: 05-18-2023 Emergency department patient visit Anirudh Vyas MD Work Phone: [facility] ED Procedures Date Procedure Procedure Detail Performing Clinician Start: 10-21-2022 Ct abdomen & pelvis w/contrast material Adebayo Ball MD Work Phone: Start: 10-21-2022 Comprehensive metabo lic panel Adebayo Ball MD Work Phone: Start: 08-12-2021 End: 08-12-2021 BP scrn no perf at interval Jeromy Reilly Cl ark PA-C Work Phone: Start: 08-12-2021 End: 08-12-2021 Calc BMI abv up gracie f/u Jeromy gan PA-C Work Phone: Start: 08-12-2021 End: 08-12-2021 Current tobacco non-user cad cap copd pv dm Jeromy Chin PA-C Work Phone: Start: 08-12-2021 End: 08-12-2021 Docrev cur meds by elig clin Jeromy Chin PA-C Work Phone: Start: 08-12-2021 End: 08-12-2021 Pain doc pos and plan Jeromy Barraza Work Phone: Start: 08-12-2021 End: 08-12-2021 Patient encounter procedure Jeromy mcintyre PA-C Work Phone: Start: 09-25-2019 Mri any jt lower ext rem w/contrast material Thumb [facility] Work Phone: Start: 09-25-2019 Arthrocentesis aspir &/inj major jt/bursa w/o [place] Work Phone: Start: 07-19-2019 Arthrocentesis aspir &/inj major jt/bursa w/o Spare Change Paymentsshanda MCLEAN Work Phone: Start: 04-22-2018 Colonoscopy Adebayo langley MD Work Phone: Start: 04-22-2018 Colonoscopy MERE DAVIS SOLUTION DESIGN AND ANALYSIS MANAGER-INFECTION CONTROL PREVENTIONIST Colonoscopy Yasmin Villatoro Elbow joint operations Yasmin Irving Hernia repair Yasmin Villatoro History of repair of hip joint MERE SHERWOOD SOLUTION DESIGN AND ANALYSIS MANAGER-INFECTION CONTROL PREVENTIONIST Inguinal herniorrhaphy MARIZA SHERWOOD SOLUTION DESIGN AND ANALYSIS MANAGER-INFECTION CONTROL PREVENTIONIST Plan of Treatment Date Care Activity Detail Author Start: 04-22-2028 Screening for malignant neoplasm of colon [facility] [employer] Start: 01-08-2025 DTaP/Tdap/Td Vaccines (2 - Td or Tdap) DTaP/Tdap/Td Vaccines (2 - Td or Tdap) [facility] Start: 03-12-2023 Influenza vaccination [facility] Start: 10-21-2022 End: 11-04-2022 Gastrointestinal pathogens panel - Stool by NATE with probe detection Gastrointestinal PCR Panel Microbiology Routine Viral gastroenteritis Expected: 10/21/2022 (Approximate), Expires: 11/04/2022 [facility] Work Phone: Immunizations Immunization Date Immunization Notes Care Provider Rogelio pathak 01-08-2015 tetanus toxoid, redu kt diphtheria toxoid, and acellular pertussis vaccine, adsorbed ADRIANE TREADWELL SOLUTION DESIGN AND ANALYSIS MANAGER-INFECTION CONTROL PREVENTIONIST [facility] Payers Date Payer Category Payer Medicaid [employer] UHC MEDICAID OD [id number] 2022-Present [phone] [address] [place] [address] Medicaid HMO [id number] 2022 Medicaid [id number] 1970 Unknown [id number] 1970 Unknown [id number] Worker's Compensation Social History Date Type Detail Facility Tobacco smoking stat [facility] Unknown if ever smoked [facility] Work Phone: Start: 1970 Sex Assigned At Not on file [facility] Work Phone: Start: 08-12-2021 End: 08-12-2021 Assertion Unknown if ever smoked [facility] Work Phone: Start: 11-08-2019 End: 10-21-2022 Ex-smoker (finding) [facility] Sex Assigned At Male [facility] History of tobacco use Current smoker [facility] History of tobacco use Cigarette Smoker [facility] Start: 10-21-2022 Tobacco use and exposure Smokeless tobacco non-user [facility] Start: 10-21-2022 Alcohol intake Ex-drinker (finding) [facility] Start: 10-22-2022 History SDOH Alcohol Frequency 1 [facility] Start: 10-22-2022 History SDOH Alcohol Std Drinks 0 [facility] Start: 10-11-2022 End: 10-21-2022 Exposure to SARS-CoV-2 (event) Not sure [facility] Start: 05-18-2023 Alcohol intake Current drinker of alcohol (finding) [facility] Start: 10-21-2022 History of Social function [facility] Start: 10-21-2022 Alcohol Use Disorder Identification Test - Consumption [AUDIT-C] [facility] How often to you hav e a drink containing alcohol? Never [facility] How many standard dr inks containing alcohol do you have on a typical day? Patient does not drink [facility] Functional Status Date Assessment Result Facility 05-17-2023 Functional Status Up ad luigi [facility] 05-17-2023 Functional Status Standard Safet y ID band on, Allergy Band on, Call device within reach, Bed in low position, Wheels locked, Visitor at bedside [facility] NEGATED: Highlighted row Functional performance Functional status health issues are not documented Disease [facility] Work Phone: Mental Status Date Assessment Result Facility 05-17-2023 Mental Status Orientation Orie nted x 4 [facility] 05-17-2023 Mental Status [facility] NEGATED: Highlighted row Cognitive function [Interpretation] Cognitive status health issues are not documented Disease [facility] Work Phone: Clinical Notes 02-10-2022 to 05-18-2023 Lo Rice RN - 05/18/2023 1:31 PM Erica Rice RN - 05/18/2023 1:31 PM Eduarda Vyas MD - 05/18/2023 12:43 PM ESTDischarge InstructionsAttachmentsAttachments Note Date & Type Note Facility 05-18-2023 Emergency department Note Adaptic, tube gauze and finger splint applied right ring finger. Pt instructed on rest, ice, elevation, wound care and signs of infection and verbalized understanding Lo Rice RN 05/18/23 1332 [facility] 05-18-2023 Emergency department Note Adaptic, tube gauze and finger splint applied right ring finger. Pt instructed on rest, ice, elevation, wound care and signs of infection and verbalized understanding Lo Rice RN 05/18/23 133 [facility] ED EMERGENCY DEPARTMENT ENCOUNTER Pt Name: Michael Del Valle III Birthdate 1970 Date of evaluation: 05/18/2023 Provider: Anirudh Vyas MD CHIEF COMPLAINT Chief Complaint Patient presents with Finger Injury Right ring finger HISTORY OF PRESENT ILLNESS (Location/Symptom, Timing/Onset,Context/Setting, Quality, Duration, Modifying Factors, Severity) Note limiting factors. Michael Del Valle III is a 53 y.o. male who presents to the emergency department with right ring finger crush injury. Happened yesterday at work 1:00 PM. He went to [facility] they had Dermabond applied but he is bleeding around the area. Said he had a fracture of the distal phalanx. He does not want tetanus updated. He was not splinted. Comes in to be seen for second opinion evaluation. He says he does feel pressure in the right ring finger. No other finger pain or injury. HPI Historian is the patient Nurse's notes for past medical history, surgical history, social history were reviewed. Medications and allergies reviewed. PAST MEDICAL HISTORY Past Medical History: Diagnosis Date Anxiety Depression GERD (gastroesophageal reflux disease) IBS (irritable bowel syndrome) SURGICALHISTORY Past Surgical History: Procedure Laterality Date HIP SURGERY KNEE SURGERY CURRENT MEDICATIONS Previous Medications CITALOPRAM (CELEXA) 40 MG TABLET citalopram 40 mg tablet take 1 tablet by mouth once daily ELUXADOLINE (VIBERZI) 100 MG TABLET Viberzi 100 mg tablet take 1 tablet by mouth twice a day with food for IBS LOPERAMIDE (IMODIUM) 2 MG CAPSULE loperamide 2 mg capsule take 1 capsule by mouth three times a day OMEPRAZOLE (PRILOSEC) [address] CAPSULE omeprazole 40 mg capsule,delayed release take 1 capsule by mouth once daily Bee venom, Lactose, Other, Iodinated contrast media, and Procaine FAMILY HISTORY No family history on file. SOCIAL HISTORY Social History Socioeconomic History Marital status: Legally Tobacco Use Smoking status: Former Types: Cigarettes Smokeless tobacco: Never Vaping Use Vaping Use: Never used Substance and Sexual Activity Alcohol use: Yes Drug use: Never SCREENINGS PHYSICAL EXAM (up to 7 for level 4, 8 or more for level 5) @EDTRIAGEVSS@ Appropriate PPE including n 95, gown, gloves, goggles where worn when appropriate with this patient. Physical Exam Examination of the right finger does have dried blood it is his ring finger. No other finger bleeding or injury. There is bruising and soft tissue swelling. No subungual hematoma. Procedure note: Performed by myself: Verbal consent given. Digital nerve block was obtained with lidocaine using a total of 5 cc good anesthesia was obtained. The distal tip was cleansed and there is no puslike material. There is dried glue. No active bleeding now. Performed by myself of the digital nerve block and cleaning of the wound. DIAGNOSTIC RESULTS RADIOLOGY: Interpretation per the Radiologist below, if availableat the time of this note: No orders to display ED BEDSIDE ULTRASOUND: Performed by ED Physician - none LABS: Labs Reviewed - No data to display All other labs were within normal range or not returned as of thisdictation. EMERGENCYDEPARTMENT COURSE and DIFFERENTIAL DIAGNOSIS/MDM: Vitals: Vitals: 05/18/23 1254 BP: (!) 143/90 BP Location: Left arm Patient Position: Sitting Pulse: 70 Resp: 16 Temp: 36.7 C (98 F) TempSrc: Oral SpO2: 98% Weight: 85.3 kg (188 lb) Height: 1.854 m (6' 1 ) Medical Decision Making Problems Addressed: Open fracture of tuft of distal phalanx of finger: complicated acute illness or injury Risk Prescription drug management. EMERGENCY DEPARTMENT COURSE and DIFFERENTIAL DIAGNOSIS/MDM: Vitals: Vitals: 05/18/23 1254 BP: (!) 143/90 BP Location: Left arm Patient Position: Sitting Pulse: 70 Resp: 16 Temp: 36.7 C (98 F) TempSrc: Oral SpO2: 98% Weight: 85.3 kg (188 lb) Height: 1.854 m (6' 1 ) The patient presented with a chief complaint of crush injury and laceration finger. The differential diagnosis associated with this patient's presentation includes finger infection, finger fracture, crush injury. Our workup consisted of ordering/reviewing none. I was able to see the verbal report and review of the records showed the distal tuft fracture. This was Dermabond yesterday. There is some bleeding around that area but it is dried not bleeding now. I would not read Dermabond or resuture as this is 24 hours old. This area was cleansed. Nonadhesive dressing to gauze dressing and cage splint was applied. Follow-up with [facility] who is seen in the past 1 to 7 days. Keep dressing on until then removed twice a day clean with soap and water and then apply dressing and cage splint. Ice to the area and elevate. Motrin Tylenol for pain. Patient agrees to this. Will place on Keflex 4 times a day for 7 days as it is an open fracture. Diagnoses as of 05/18/23 1328 Open fracture of tuft of distal phalanx of finger Diagnostics considered but not indicated based on history, physical, testing: X-rays however he had those done yesterday. External records reviewed: Outpatient records reviewed from [facility] I could see the written report for the x-ray fracture. Radiologic diagnostics interpreted by me: film images such as CT, Ultrasound and MRI are read by the radiologist. Plain radiographic images are visualized and preliminarily interpreted by the emergency physician with the below findings: None Discussions with other clinicians: None Chronic conditions impacting care: Anxiety and GERD Irritable bowel Social determinants of health affecting care: Uses alcohol. Reformed smoker. Shared decision making: Patient agrees to treatment plan ED Medications managed: Medications lidocaine (Xylocaine) 1 % injection 10 mL (10 mL Infiltration Given by Other 05/18/23 1255) Prescription drugs considered: Keflex 500 mg 4 times a day for 7 days. PROCEDURES: Unless otherwise noted below, none Procedures IMPRESSION 1. Open fracture of tuft of distal phalanx of finger DISPOSITION/PLAN DISPOSITION Discharge 05/18/2023 01:21:59 PM PATIENT REFERRED TO: Your orthopedic doctor at [facility] In 1 week Call today to be seen in the next 1 to 7 days. DISCHARGE MEDICATIONS: New Prescriptions CEPHALEXIN (KEFLEX) 500 MG CAPSULE Take 1 capsule (500 mg) by mouth in the morning and 1 capsule (500 mg) at noon and 1 capsule (500 mg) in the evening and 1 capsule (500 mg) before bedtime. Do all this for 7 days. @[facility]([id number]:LAST:1)@ (Comment: Please notethis report has been produced using speech recognition software and may contain errors related to that system including errors in grammar, punctuation, and spelling, as well as words and phrases that may be inappropriate.If there is any questions or concerns please feel free to contact the dictating provider for clarification). Anirudh Vyas MD (electronically signed) Attending Emergency Physician Anirudh Vyas MD 05/18/23 1328 Pt to ER with complaint of injury to right ring finger yesterday. 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 Hit his finger accidentally. Was seen at [facility] for this and they dermabonded his finger. Complains of continued pain and swelling 01/18. Pt ambulatory on arrival with steady gait. Alert and oriented x 4. Skin warm and dry except as noted to finger, respirations even and unlabored. Call light in reach. Family at bedside documented in this encounter [facility] 05-18-2023 Hospital Discharge instructions Anirudh Vyas MD - 05/18/2023 1:23 PM EST Keep the dressing and splint on until late . Remove and gently clean the wound twice a day. Reapply splint until rechecked by orthopedics. Important to ice several times a day. The following attachments cannot be sent through Care Everywhere.Finger Fracture ED (American)Laceration Repair With Glue Discharge Instructions (American)documented in this encounter [facility] 05-18-2023 Emergency department Triage note Pt to ER with complaint of injury to right ring finger yesterday. 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 Hit his finger accidentally. Was seen at [facility] for this and they dermabonded his finger. Complains of continued pain and swelling 01/18. Pt ambulatory on arrival with steady gait. Alert and oriented x 4. Skin warm and dry except as noted to finger, respirations even and unlabored. Call light in reach. Family at bedside [facility] 05-18-2023 Physician Emergency department Note [facility] ED EMERGENCY DEPARTMENT ENCOUNTER Pt Name: Michael Del Valle III Birthdate 1970 Date of evaluation: 05/18/2023 Provider: Anirudh Vyas MD CHIEF COMPLAINT Chief Complaint Patient presents with Finger Injury Right ring finger HISTORY OF PRESENT ILLNESS (Location/Symptom, Timing/Onset,Context/Setting, Quality, Duration, Modifying Factors, Severity) Note limiting factors. Michael Del Valle III is a 53 y.o. male who presents to the emergency department with right ring finger crush injury. Happened yesterday at work 1:00 PM. He went to [facility] they had Dermabond applied but he is bleeding around the area. Said he had a fracture of the distal phalanx. He does not want tetanus updated. He was not splinted. Comes in to be seen for second opinion evaluation. He says he does feel pressure in the right ring finger. No other finger pain or injury. HPI Historian is the patient Nurse's notes for past medical history, surgical history, social history were reviewed. Medications and allergies reviewed. PAST MEDICAL HISTORY Past Medical History: Diagnosis Date Anxiety Depression GERD (gastroesophageal reflux disease) IBS (irritable bowel syndrome) SURGICALHISTORY Past Surgical History: Procedure Laterality Date HIP SURGERY KNEE SURGERY CURRENT MEDICATIONS Previous Medications CITALOPRAM (CELEXA) 40 MG TABLET citalopram 40 mg tablet take 1 tablet by mouth once daily ELUXADOLINE (VIBERZI) 100 MG TABLET Viberzi 100 mg tablet take 1 tablet by mouth twice a day with food for IBS LOPERAMIDE (IMODIUM) 2 MG CAPSULE loperamide 2 mg capsule take 1 capsule by mouth three times a day OMEPRAZOLE (PRILOSEC) [address] CAPSULE omeprazole 40 mg capsule,delayed release take 1 capsule by mouth once daily Bee venom, Lactose, Other, Iodinated contrast media, and Procaine FAMILY HISTORY No family history on file. SOCIAL HISTORY Social History Socioeconomic History Marital status: Legally Tobacco Use Smoking status: Former Types: Cigarettes Smokeless tobacco: Never Vaping Use Vaping Use: Never used Substance and Sexual Activity Alcohol use: Yes Drug use: Never SCREENINGS PHYSICAL EXAM (up to 7 for level 4, 8 or more for level 5) @EDTRIAGEVSS@ Appropriate PPE including n 95, gown, gloves, goggles where worn when appropriate with this patient. Physical Exam Examination of the right finger does have dried blood it is his ring finger. No other finger bleeding or injury. There is bruising and soft tissue swelling. No subungual hematoma. Procedure note: Performed by myself: Verbal consent given. Digital nerve block was obtained with lidocaine using a total of 5 cc good anesthesia was obtained. The distal tip was cleansed and there is no puslike material. There is dried glue. No active bleeding now. Performed by myself of the digital nerve block and cleaning of the wound. DIAGNOSTIC RESULTS RADIOLOGY: Interpretation per the Radiologist below, if availableat the time of this note: No orders to display ED BEDSIDE ULTRASOUND: Performed by ED Physician - none LABS: Labs Reviewed - No data to display All other labs were within normal range or not returned as of thisdictation. EMERGENCYDEPARTMENT COURSE and DIFFERENTIAL DIAGNOSIS/MDM: Vitals: Vitals: 05/18/23 1254 BP: (!) 143/90 BP Location: Left arm Patient Position: Sitting Pulse: 70 Resp: 16 Temp: 36.7 C (98 F) TempSrc: Oral SpO2: 98% Weight: 85.3 kg (188 lb) Height: 1.854 m (6' 1 ) Medical Decision Making Problems Addressed: Open fracture of tuft of distal phalanx of finger: complicated acute illness or injury Risk Prescription drug management. EMERGENCY DEPARTMENT COURSE and DIFFERENTIAL DIAGNOSIS/MDM: Vitals: Vitals: 05/18/23 1254 BP: (!) 143/90 BP Location: Left arm Patient Position: Sitting Pulse: 70 Resp: 16 Temp: 36.7 C (98 F) TempSrc: Oral SpO2: 98% Weight: 85.3 kg (188 lb) Height: 1.854 m (6' 1 ) The patient presented with a chief complaint of crush injury and laceration finger. The differential diagnosis associated with this patient's presentation includes finger infection, finger fracture, crush injury. Our workup consisted of ordering/reviewing none. I was able to see the verbal report and review of the records showed the distal tuft fracture. This was Dermabond yesterday. There is some bleeding around that area but it is dried not bleeding now. I would not read Dermabond or resuture as this is 24 hours old. This area was cleansed. Nonadhesive dressing to gauze dressing and cage splint was applied. Follow-up with [facility] who is seen in the past 1 to 7 days. Keep dressing on until then removed twice a day clean with soap and water and then apply dressing and cage splint. Ice to the area and elevate. Motrin Tylenol for pain. Patient agrees to this. Will place on Keflex 4 times a day for 7 days as it is an open fracture. Diagnoses as of 05/18/23 1328 Open fracture of tuft of distal phalanx of finger Diagnostics considered but not indicated based on history, physical, testing: X-rays however he had those done yesterday. External records reviewed: Outpatient records reviewed from [facility] I could see the written report for the x-ray fracture. Radiologic diagnostics interpreted by me: film images such as CT, Ultrasound and MRI are read by the radiologist. Plain radiographic images are visualized and preliminarily interpreted by the emergency physician with the below findings: None Discussions with other clinicians: None Chronic conditions impacting care: Anxiety and GERD Irritable bowel Social determinants of health affecting care: Uses alcohol. Reformed smoker. Shared decision making: Patient agrees to treatment plan ED Medications managed: Medications lidocaine (Xylocaine) 1 % injection 10 mL (10 mL Infiltration Given by Other 05/18/23 3985) Prescription drugs considered: Keflex 500 mg 4 times a day for 7 days. PROCEDURES: Unless otherwise noted below, none Procedures IMPRESSION 1. Open fracture of tuft of distal phalanx of finger DISPOSITION/PLAN DISPOSITION Discharge 05/18/2023 01:21:59 PM PATIENT REFERRED TO: Your orthopedic doctor at [facility] In 1 week Call today to be seen in the next 1 to 7 days. DISCHARGE MEDICATIONS: New Prescriptions CEPHALEXIN (KEFLEX) 500 MG CAPSULE Take 1 capsule (500 mg) by mouth in the morning and 1 capsule (500 mg) at noon and 1 capsule (500 mg) in the evening and 1 capsule (500 mg) before bedtime. Do all this for 7 days. @[facility]([id number]:LAST:1)@ (Comment: Please notethis report has been produced using speech recognition software and may contain errors related to that system including errors in grammar, punctuation, and spelling, as well as words and phrases that may be inappropriate.If there is any questions or concerns please feel free to contact the dictating provider for clarification). Anirudh Vyas MD (electronically signed) Attending Emergency Physician Anirudh Vyas MD 05/18/23 1328 [facility] 05-17-2023 Hospital Discharge instructions Patient Education 05/17/2023 18:00:45 Laceration, Extremity: Skin Glue Extremity Laceration: Skin Glue A laceration is a cut through the skin. You have a laceration that has been closed with skin glue. This is used on cuts that have smooth edges and are not infected. It's best used on straight, clean cuts on areas that do not get a lot of tension. You may need a tetanus shot. This is given if you have no record of a shot, and the object that caused the cut may lead to tetanus. Home care Your healthcare provider may prescribe an antibiotic. This is to help prevent infection. Follow all instructions for taking this medicine. Take the medicine every day until it is gone or you are told to stop. You should not have any left over. The healthcare provider may prescribe medicines for pain. Follow instructions for taking them. Follow the healthcare provider s instructions on how to care for the cut. No bandage is needed. Skin glue peels off on its own within 5 to 10 days. Most skin wounds heal within 10 days. Keep the wound clean. You may shower or bathe as usual, but do not use soaps, lotions, or ointments on the wound area. Do not scrub the wound. After bathing, pat the wound dry with a soft towel. Don't scratch, rub, or pick at the film. Don't place tape directly over the film. Don't put liquids such as peroxide, ointments, or creams on the wound while the skin glue is in place. Many oil based products can weaken and dissolve the glue. Don't do any activities that may reinjure your wound. Don't do any activities that cause heavy sweating. Protect the wound from sunlight. Most skin wounds heal without problems. But an infection sometimes occurs even with proper treatment. Watch for the signs of infection listed below. Follow-up care Follow up as directed with your healthcare provider, or as advised. When to seek medical advice Call your healthcare provider right away if any of these occur: Wound bleeding not controlled by direct pressure Signs of infection, including increasing pain in the wound, increasing wound redness or swelling, or pus or bad odor coming from the wound Fever of 100.4 F (38. C) or higher, or as directed by your healthcare provider Wound edges reopen Wound changes colors Numbness around the wound Decreased movement around the injured area [id number] [employer]. [address] [place] [address]. All rights reserved. This information is not intended as a substitute for professional medical care. Always follow your healthcare professional's instructions. 05/17/2023 17:59:59 Fracture, Finger, Closed Finger Fracture, Closed You have a broken finger (fracture). This causes local pain, swelling, and bruising. This injury usually takes about 4 to 6 weeks to heal, but can take longer in some cases. Finger injuries are often treated with a splint or cast, or by taping the injured finger to the next one (kierra taping). This protects the injured finger and holds the bone in position while it heals. More serious fractures may need surgery. If the fingernail has been severely injured, it will probably fall off in 1 to 2 weeks. A new fingernail will usually start to grow back within a month. Home care Follow these guidelines when caring for yourself at home: Keep your hand elevated to reduce pain and swelling. When sitting or lying down keep your arm above the level of your heart. You can do this by placing your arm on a pillow that rests on your chest or on a pillow at your side. This is most important during the first 2 days (48 hours) after the injury. Put an ice pack on the injured area. Do this for 20 minutes every 1 to 2 hours the first day for pain relief. You can make an ice pack by wrapping a plastic bag of ice cubes in a thin towel. As the ice melts, be careful that the cast or splint doesn t get wet. Continue using the ice pack 3 to 4 times a day until the pain and swelling go away. Keep the cast or splint completely dry at all times. Bathe with your cast or splint out of the water. Protect it with a large plastic bag, rubber-banded at the top end. If a fiberglass cast or splint gets wet, you can dry it with a occupational therapy department chair. If kierra tape was put on and it becomes wet or dirty, change it. You may replace it with paper, plastic, or cloth tape. Cloth tape and paper tapes must be kept dry. Keep the kierra tape in place for at least 4 weeks. You may use acetaminophen or ibuprofen to control pain, unless another pain medicine was prescribed. If you have chronic liver or kidney disease, talk with your healthcare provider before using these medicines. Also talk with your provider if you ve had a stomach ulcer or gastrointestinal bleeding. Don t put creams or objects under the cast if you have itching. Follow-up care Follow up with your healthcare provider, or as advised. This is to make sure the bone is healing the way it should. X-rays may be taken. You will be told of any new findings that may affect your care. When to seek medical advice Call your healthcare provider right away if any of these occur: The plaster cast or splint becomes wet or soft The cast or splint cracks The fiberglass cast or splint stays wet for more than 24 hours Pain or swelling gets worse Redness, warmth, swelling, drainage from the wound, or foul odor from a cast or splint Finger becomes more cold, blue, numb, or tingly You can t move your finger The skin around the cast or splint becomes red Fever of 100.4 F (38 C) or higher, or as directed by your healthcare provider [phone] [employer] [address] [place] [address]. All rights reserved. This information is not intended as a substitute for professional medical care. Always follow your healthcare professional's instructions. Follow Up Care 05/17/2023 15:33:08 With:SANDY VIERA Address: [address] [place] [address]- [phone] When:2-4 days [facility] 05-17-2023 Note Discharge Instructions Thank you for allowing [facility] to assist you with your healthcare needs. The following is important discharge information regarding your hospital visit. Diagnosis from Today's Visit Closed fracture of distal phalanx of fourth digit of right hand Hand laceration Laceration of finger of right hand What to Do Next Instructions from Your Care Team No qualifying data available. Post Acute Orders No qualifying data available. You Need to Schedule the Following Appointments Follow Up with SANDY VIERA When Within 2-4 days Where: [place] [address]- [phone] Allergies Animal Dander (Swelling) Bee Stings (Swelling) Novocain (Nausea) Medications Please ask your primary doctor or pharmacist before taking any other medication not listed, including over the counter drugs, herbal medications, vitamins and or supplements as they may interact with your home medications. What How Much When Instructions Last Dose Unchanged doxycycline (doxycycline hyclate 100 mg oral capsule) 1 cap by mouth Two (2) times a day Duration: 10 Days Unchanged ibuprofen (ibuprofen 200 mg oral tablet) 2 tab(s) by mouth Every 6 hours as needed for pain or fever Unchanged OXcarbazepine (OXcarbazepine 150 mg oral tablet) 1 tab(s) by mouth Two (2) times a day Unchanged pancrelipase (Zenpep 40,000 units-126,000 units-168,000 units oral delayed release capsule) 2 cap by mouth Four (4) times a day with each meal and one w/ snacks. No more than 10 daily Please take this list to your next doctor s visit. Bring all medications you take, including over the counter medications, herbals and other supplements with you to your doctor s visit. Patients and families are reminded to discard old lists and to update any records with all medication providers or retail pharmacies. Education Materials Extremity Laceration: Skin Glue A laceration is a cut through the skin. You have a laceration that has been closed with skin glue. This is used on cuts that have smooth edges and are not infected. It's best used on straight, clean cuts on areas that do not get a lot of tension. You may need a tetanus shot. This is given if you have no record of a shot, and the object that caused the cut may lead to tetanus. Home care Your healthcare provider may prescribe an antibiotic. This is to help prevent infection. Follow all instructions for taking this medicine. Take the medicine every day until it is gone or you are told to stop. You should not have any left over. The healthcare provider may prescribe medicines for pain. Follow instructions for taking them. Follow the healthcare provider s instructions on how to care for the cut. No bandage is needed. Skin glue peels off on its own within 5 to 10 days. Most skin wounds heal within 10 days. Keep the wound clean. You may shower or bathe as usual, but do not use soaps, lotions, or ointments on the wound area. Do not scrub the wound. After bathing, pat the wound dry with a soft towel. Don't scratch, rub, or pick at the film. Don't place tape directly over the film. Don't put liquids such as peroxide, ointments, or creams on the wound while the skin glue is in place. Many oil based products can weaken and dissolve the glue. Don't do any activities that may reinjure your wound. Don't do any activities that cause heavy sweating. Protect the wound from sunlight. Most skin wounds heal without problems. But an infection sometimes occurs even with proper treatment. Watch for the signs of infection listed below. Follow-up care Follow up as directed with your healthcare provider, or as advised. When to seek medical advice Call your healthcare provider right away if any of these occur: Wound bleeding not controlled by direct pressure Signs of infection, including increasing pain in the wound, increasing wound redness or swelling, or pus or bad odor coming from the wound Fever of 100.4 F (38. C) or higher, or as directed by your healthcare provider Wound edges reopen Wound changes colors Numbness around the wound Decreased movement around the injured area [phone] [employer] [address] [place] [address]. All rights reserved. This information is not intended as a substitute for professional medical care. Always follow your healthcare professional's instructions. Finger Fracture, Closed You have a broken finger (fracture). This causes local pain, swelling, and bruising. This injury usually takes about 4 to 6 weeks to heal, but can take longer in some cases. Finger injuries are often treated with a splint or cast, or by taping the injured finger to the next one (kierra taping). This protects the injured finger and holds the bone in position while it heals. More serious fractures may need surgery. If the fingernail has been severely injured, it will probably fall off in 1 to 2 weeks. A new fingernail will usually start to grow back within a month. Home care Follow these guidelines when caring for yourself at home: Keep your hand elevated to reduce pain and swelling. When sitting or lying down keep your arm above the level of your heart. You can do this by placing your arm on a pillow that rests on your chest or on a pillow at your side. This is most important during the first 2 days (48 hours) after the injury. Put an ice pack on the injured area. Do this for 20 minutes every 1 to 2 hours the first day for pain relief. You can make an ice pack by wrapping a plastic bag of ice cubes in a thin towel. As the ice melts, be careful that the cast or splint doesn t get wet. Continue using the ice pack 3 to 4 times a day until the pain and swelling go away. Keep the cast or splint completely dry at all times. Bathe with your cast or splint out of the water. Protect it with a large plastic bag, rubber-banded at the top end. If a fiberglass cast or splint gets wet, you can dry it with a occupational therapy department chair. If kierra tape was put on and it becomes wet or dirty, change it. You may replace it with paper, plastic, or cloth tape. Cloth tape and paper tapes must be kept dry. Keep the kierra tape in place for at least 4 weeks. You may use acetaminophen or ibuprofen to control pain, unless another pain medicine was prescribed. If you have chronic liver or kidney disease, talk with your healthcare provider before using these medicines. Also talk with your provider if you ve had a stomach ulcer or gastrointestinal bleeding. Don t put creams or objects under the cast if you have itching. Follow-up care Follow up with your healthcare provider, or as advised. This is to make sure the bone is healing the way it should. X-rays may be taken. You will be told of any new findings that may affect your care. When to seek medical advice Call your healthcare provider right away if any of these occur: The plaster cast or splint becomes wet or soft The cast or splint cracks The fiberglass cast or splint stays wet for more than 24 hours Pain or swelling gets worse Redness, warmth, swelling, drainage from the wound, or foul odor from a cast or splint Finger becomes more cold, blue, numb, or tingly You can t move your finger The skin around the cast or splint becomes red Fever of 100.4 F (38 C) or higher, or as directed by your healthcare provider [phone] [employer] [address] [place] [address]. All rights reserved. This information is not intended as a substitute for professional medical care. Always follow your healthcare professional's instructions. Additional Information VACCINATE! IT SAVES LIVES! Members of the community who have not yet received the COVID-19 vaccine and would like to receive it can visit one of [facility] vaccine clinics. There are many vaccine clinic locations within the [facility]. For locations and available times, please visit [email or web address] [email or web address] It is important to note that some COVID mobile vaccine clinics are held outdoors and may be canceled in rainy or stormy conditions. To learn more about pediatric vaccinations (ages 5-11), we invite you to visit the [facility] webpage. [email or web address]/p [email or web address]-Jxspl-Msrenabroxi-Freq [email or web address]-Lujgp-Esmpwznxb.html To learn more about the COVID-19 vaccine, we invite you to visit the CDC website for a list of frequently asked questions. https://www.cdc.gov/coronavirus/ 2019-ncov/vaccines/faq.html [facility] Patient Portal Access Instructions: Stay connected with your healthcare team and access your personal medical information anytime with the [facility] Patient Portal. If you would like a full copy of your medical records please contact the [facility] Medical Records Department Wednesday through Wednesday between 8a.m. and 4:30p.m. Please follow the directions below to access the portal: 1.Access the email account you provided upon registration to the [facility].2.Look for an invitation email from [facility].3.Open the email and access the invitation link: Accept Invitation to [facility]4.Fill in the required hunter to create your account. Sign into www.[email or web address] with your username and password that you created in the above steps to stay up to date. You can then view a summary of results, a summary of your visits, and the ability to download your summaries to your computer or send the information securely to a physician. Remember that your healthcare information is confidential, so carefully consider who you will allow to register on the [facility] Patient Portal for access to your information. You can also access the [facility] Patient Portal on the [employer] sid. Simply click on Health Records under Health Data and then click on the [employer] logo. HOW TO SAFELY DISPOSE OF PRESCRIPTION MEDICATIONS Please use one of the following methods to safely dispose of your unused medications. 1.Use a drug disposal kit: the drug disposal pouch allows you to safely discard your old and unused drugs. Ask your nurse to give you one when you are discharged.2.Visit a local take-back location: Many local pharmacies and police departments have programs that collect old and unwanted prescription drugs. Call your local pharmacy or go to http://bit.[employer]/9F4Xy6l to find one close to you.3.Make use of household items: Use cat litter or old coffee grounds to dispose medications if other options are not available. Mix your drugs with these household products, seal them in an airtight container and throw it into the garbage. Call [facility]: [phone] to be sure your drugs can be disposed of in this way. Some medicines may require a different approach.4.Never flush your medications down the toilet. IF YOU HAVE BEEN PRESCRIBED AN OPIOIDS FOR PAIN If you have been prescribed an opioid (such as hydrocodone, oxycodone or morphine), it is critical to understand the possible side effects and risks of opioid pain medications. Even when taken as directed, opioids can have several side effects including: Tolerance, meaning you might need to take more of a medication for the same pain relief. Nausea, vomiting and/or constipation. Sleepiness, dizziness, dry mouth, confusion, depression or itching. Physical dependence, meaning you have withdrawal symptoms when a medication is stopped ? this can develop within a few days. KNOW YOUR RESPONSIBILITIES It is important to know exactly how much and how often to take the opioid pain medications you are prescribed. Never take opioids in higher amounts or more often than prescribed. Do not combine opioids with alcohol or other drugs that cause drowsiness, such as benzodiazepines, also known as benzos, including diazepam and alprazolam, muscle relaxants or sleep aids. Never sell or share prescription opioids. This is illegal. Store opioids in a secure place and out of reach of others (including children, family, friends and visitors). The last page(s) of this document has been signed and retained as a CHART COPY Signatures Patient Education Materials Laceration, Extremity: Skin Glue Fracture, Finger, Closed Medication Leaflets My discharge plan and instructions have been reviewed and explained to me and IIVON FREDERICK A understand my current condition and have read and understand these discharge instructions. I have received a written copy of the plan/instructions. If I have questions, I am aware that I should contact my doctor. 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 HISTORY: ORDERING SYSTEM PROVIDED HISTORY: Reason for Exam: Hit index finger with hammer FINDINGS: Nondisplaced fracture of the distal tuft of the ring finger distal phalanx. There is normal alignment. No acute joint abnormality. No focal osseous lesion. No focal soft tissue abnormality. IMPRESSION: 4th digit distal phalanx nondisplaced acute fracture. Interpreted by: Joseluis Hinds Preliminary Report By: Joseluis Hinds Electronically signed By Joseluis Hinds Dictated Date: 05/17/2023 5:35:45 PM Prelim Date: 05/17/2023 5:37:39 PM Sign Date: 05/17/2023 5:37:39 PM Ordering Provider: MAX NIEVES [facility] 10-21-2022 Hospital Discharge instructions Adebayo Ball MD - 10/21/2022 9:50 PM EDT Please stool sample if you can and take it to the lab for testing. Follow-up with your primary doctor. Zofran provided for nausea, Bentyl for discomfort. Stay well-hydrated. The following attachments cannot be sent through Care Everywhere.Viral Gastroenteritis Discharge Instructions, Adult (American)documented in this encounter [facility] 10-21-2022 Emergency department Note 500 ML bolus was not given. Patient's IV infiltrated. notified and wants him to drink water orally. Patient drank water and tolerated well. Anne Grijalva RN 10/21/222150 [facility] 10-21-2022 Emergency department Note 500 ML bolus was not given. Patient's IV infiltrated. notified and wants him to drink water orally. Patient drank water and tolerated well. Anne Grijalva RN 10/21/222150 Warm blanket given for comfort. Call light within reach. Family at bedside. Anne Grijalva RN 10/21/222025 EMERGENCY DEPARTMENT ENCOUNTER Pt Name: Michael Del Valle III Birthdate 1970 Date of evaluation: 10/21/2022 ED Provider: Adebayo Ball MD CHIEF COMPLAINT Chief Complaint Patient presents with Vomiting Abdominal Pain HISTORY OF PRESENT ILLNESS (Location/Symptom, Timing/Onset, Context/Setting, Quality, Duration, Modifying Factors, Severity) Note limiting factors. I wore appropriate PPE for the entirety of this encounter. HPI Michael Del Valle III is a 52 y.o. male who presents to the emergency department with chief complaint of abdominal pain nausea vomiting diarrhea. Symptoms started 4 days ago. States his grandson was sick with GI symptoms about a week ago. He states he is having nonbloody nonbilious vomiting as well as greenish mucousy stools. Denies any recent antibiotics or travel or history of C. difficile. States he has a history of IBS. States the pain to the abdomen comes in waves when he needs to have a bowel movement and states its in the upper abdomen mainly. Denies any testicular pain dysuria hematuria penile discharge. Denies prior abdominal surgeries. Denies history of peptic ulcers pancreatitis or gallstones. Denies any chest pain or shortness of breath. Denies any flank pain. Nursing Notes were reviewed. Limitations to history: None Outside historians: None REVIEW OF SYSTEMS Review of Systems Constitutional: Negative for chills and fever. HENT: Negative for ear pain and sore throat. Eyes: Negative for pain and visual disturbance. Respiratory: Negative for cough and shortness of breath. Cardiovascular: Negative for chest pain and palpitations. Gastrointestinal: Positive for abdominal pain, diarrhea, nausea and vomiting. Genitourinary: Negative for dysuria and hematuria. Musculoskeletal: Negative for arthralgias and back pain. Skin: Negative for color change and rash. Neurological: Negative for seizures and syncope. All other systems reviewed and are negative. Pertinent positives and negatives as per HPI. PAST MEDICAL HISTORY Past Medical History: Diagnosis Date Anxiety Depression GERD (gastroesophageal reflux disease) IBS (irritable bowel syndrome) SURGICAL HISTORY Past Surgical History: Procedure Laterality Date HIP SURGERY KNEE SURGERY CURRENT MEDICATIONS Previous Medications CITALOPRAM (CELEXA) 40 MG TABLET citalopram 40 mg tablet take 1 tablet by mouth once daily ELUXADOLINE (VIBERZI) 100 MG TABLET Viberzi 100 mg tablet take 1 tablet by mouth twice a day with food for IBS LOPERAMIDE (IMODIUM) 2 MG CAPSULE loperamide 2 mg capsule take 1 capsule by mouth three times a day OMEPRAZOLE (PRILOSEC) [address] CAPSULE omeprazole 40 mg capsule,delayed release take 1 capsule by mouth once daily ALLERGIES Bee venom, Lactose, and Other FAMILY HISTORY No family history on file. SOCIAL HISTORY Social History Socioeconomic History Marital status: Legally Tobacco Use Smoking status: Former Types: Cigarettes Smokeless tobacco: Never Substance and Sexual Activity Alcohol use: Not Currently Drug use: Never SCREENINGS PHYSICAL EXAM ED Triage Vitals [10/21/221954] Temp Heart Rate Resp BP 37.2 C (99 F) (!) 119 18 (!) 139/102 SpO2 Temp Source Heart Rate Source Patient Position 99 % Oral Monitor Sitting BP Location FiO2 (%) Right arm -- Physical Exam Vitals and nursing note reviewed. Constitutional: General: He is not in acute distress. Appearance: He is well-developed. He is ill-appearing. He is not toxic-appearing or diaphoretic. HENT: Head: Normocephalic and atraumatic. Mouth/Throat: Mouth: Mucous membranes are moist. Pharynx: Oropharynx is clear. Eyes: General: No scleral icterus. Extraocular Movements: Extraocular movements intact. Conjunctiva/sclera: Conjunctivae normal. Pupils: Pupils are equal, round, and reactive to light. Cardiovascular: Rate and Rhythm: Regular rhythm. Tachycardia present. Pulmonary: Effort: Pulmonary effort is normal. No respiratory distress. Breath sounds: Normal breath sounds. Abdominal: General: Abdomen is flat. Bowel sounds are normal. There is no distension. Palpations: Abdomen is soft. There is no pulsatile mass. Tenderness: There is abdominal tenderness in the right upper quadrant, right lower quadrant, epigastric area and periumbilical area. There is guarding. There is no rebound. Positive signs include McBurney's sign. Negative signs include Leung's sign. Hernia: No hernia is present. Genitourinary: Testes: Normal. Musculoskeletal: General: No swelling. Cervical back: Neck supple. Skin: General: Skin is warm and dry. Capillary Refill: Capillary refill takes less than 2 seconds. Neurological: General: No focal deficit present. Mental Status: He is alert and oriented to person, place, and time. Psychiatric: Mood and Affect: Mood normal. DIAGNOSTIC RESULTS Procedures/EKG: EKG was reviewed by myself. Phys[facility] RAD[facility]OLOGY (Per Emergency Physician): CT abdomen pelvis suspect gastroenteritis. Interpretation per the Radiologist below, if available at the time of this note: CT abdomen pelvis w contrast Final Result 1. Suspect gastroenteritis. Report Dictated on Electronically Signed By: Jeffrey Carrillo Electronically Signed Date/Time: 10/21/2022 9:19 PM EDT ED BEDSIDE ULTRASOUND: Performed by ED Physician - none LABS: Labs Reviewed CBC WITH AUTO DIFFERENTIAL - Abnormal Result Value Auto WBC 6.5 RBC 5.72 Hemoglobin 17.6 Hematocrit 48.9 MCV 85.5 MCH 30.8 MCHC 36.0 RDW 12.0 Platelets 363 MPV 9.2 Neutrophils Relative 56.4 Lymphocytes Relative 26.5 Monocytes Relative 15.3 (*) Eosinophils Relative 1.1 Basophils Relative 0.5 Immature Grans % 0.2 (*) Neutrophils Absolute 3.7 Lymphocytes Absolute 1.7 Monocytes Absolute 1.0 (*) Eosinophils Absolute 0.1 Basophils Absolute 0.0 Immature Grans Absolute 0.0 COMPREHENSIVE METABOLIC PANEL - Abnormal SODIUM 129 (*) POTASSIUM 3.3 (*) CHLORIDE 105 CARBON DIOXIDE 14 (*) ANION GAP 11 UREA NITROGEN 17 CREATININE 0.81 GLUCOSE 131 (*) CALCIUM 8.4 AST (SGOT) 29 ALT 32 ALKALINE PHOSPHATASE 54 ALBUMIN 3.9 BILIRUBIN, TOTAL 0.9 TOTAL PROTEIN 6.8 eGFR >90.0 LIPASE - Normal LIPASE 109 LACTIC ACID, SEPSIS WITH REFLEX IF ELEVATED - Normal LACTIC ACID 0.9 All other labs were within normal range or not returned as of this dictation. EMERGENCY DEPARTMENT COURSE and DIFFERENTIAL DIAGNOSIS/MDM: Vitals: Vitals: 10/21/22 1955 BP: (!) 139/102 BP Location: Right arm Patient Position: Sitting Pulse: (!) 119 Resp: 18 Temp: 37.2 C (99 F) TempSrc: Oral SpO2: 99% Weight: 88.5 kg (195 lb) Height: 1.854 m (6' 1 ) 52-year-old male here with abdominal pain nausea vomiting diarrhea. Appears ill and is tachycardic. Differential includes cholecystitis pancreatitis mesenteric ischemia appendicitis dehydration metabolic disturbance colitis. Plan for CBC CMP lipase lactic acid IV fluids Zofran Pepcid Bentyl, CT abdomen pelvis for further evaluation. Diagnoses as of 10/21/222150 Viral gastroenteritis The patient presented with chief complaint of abdominal pain. The differential diagnosis associated with this patient's presentation includes as above. Our workup consisted of ordering/reviewing: As above. Patient is in agreement with this plan. Patient's care was impacted by IBS. Medications sodium chloride 0.9 % bolus 1,000 mL (0 mL IntraVENous Stopped 10/21/222117) ondansetron (Zofran) injection 4 mg (4 mg IntraVENous Given 10/21/222016) famotidine (Pepcid) injection 20 mg (20 mg IntraVENous Given 10/21/222018) dicyclomine (Bentyl) injection 20 mg (20 mg IntraMUSCular Given 10/21/222013) sodium chloride 0.9 % bolus 500 mL (0 mL IntraVENous Stopped 10/21/222147) REVAL: Patient reassessed after work-up completed. No significant lab disturbance except for slightly low bicarb indicative of likely dehydration but a normal lactic acid. CT suspect gastroenteritis without acute abnormality. Patient feeling improved. He is tolerating water intake now. His heart rate is now around 91. He is unable to give a stool sample here but will provide him a lab slip to give 1 outpatient if able and instructed follow-up with PCP. Given Zofran and Bentyl prescriptions. Return precautions given. CRITICAL CARE TIME None CONSULTS: None PROCEDURES: Unless otherwise noted below, none Procedures Patients symptoms are consistent with sepsis, severe sepsis, or septic shock (If yes use .sepsiscoremeasure ): no FINAL IMPRESSION 1. Viral gastroenteritis DISPOSITION Discharge 10/21/2022 09:31:39 PM PATIENT REFERRED TO: Sandy Viera [address] [place] [id number] Schedule an appointment as soon as possible for a visit DISCHARGE MEDICATIONS: New Prescriptions DICYCLOMINE (BENTYL) 10 MG CAPSULE Take 1 capsule (10 mg) by mouth 3 times daily as needed (abdominal discomfort) for up to 5 days. ONDANSETRON ODT (ZOFRAN-ODT) 4 MG DISINTEGRATING TABLET Take 1 tablet (4 mg) by mouth every 8 hours as needed for nausea or vomiting for up to 7 days. (Comment: Please note this report has been produced using speech recognition software and may contain errors related to that system including errors in grammar, punctuation, and spelling, as well as words and phrases that may be inappropriate. If there are any questions or concerns please feel free to contact the dictating provider for clarification.) Adebayo Ball MD (electronically signed) Emergency Medicine Provider Adebayo Ball MD 10/21/222151 Patient is here for vomiting and abdominal pain. Symptoms started Wednesday. He is unable to keep down foods/liquids. He complains of upper abdomen pain. He has a history of IBS. He complains of a sore throat from vomiting. documented in this encounter [facility] 10-21-2022 Emergency department Note Warm blanket given for comfort. Call light within reach. Family at bedside. Anne Grijalva RN 10/21/222025 [facility] 10-21-2022 Emergency department Triage note Patient is here for vomiting and abdominal pain. Symptoms started Wednesday. He is unable to keep down foods/liquids. He complains of upper abdomen pain. He has a history of IBS. He complains of a sore throat from vomiting. [facility] 10-21-2022 Physician Emergency department Note EMERGENCY DEPARTMENT ENCOUNTER Pt Name: Michael Del Valle III Birthdate 1970 Date of evaluation: 10/21/2022 ED Provider: Adebayo Ball MD CHIEF COMPLAINT Chief Complaint Patient presents with Vomiting Abdominal Pain HISTORY OF PRESENT ILLNESS (Location/Symptom, Timing/Onset, Context/Setting, Quality, Duration, Modifying Factors, Severity) Note limiting factors. I wore appropriate PPE for the entirety of this encounter. HPI Michael Del Valle III is a 52 y.o. male who presents to the emergency department with chief complaint of abdominal pain nausea vomiting diarrhea. Symptoms started 4 days ago. States his grandson was sick with GI symptoms about a week ago. He states he is having nonbloody nonbilious vomiting as well as greenish mucousy stools. Denies any recent antibiotics or travel or history of C. difficile. States he has a history of IBS. States the pain to the abdomen comes in waves when he needs to have a bowel movement and states its in the upper abdomen mainly. Denies any testicular pain dysuria hematuria penile discharge. Denies prior abdominal surgeries. Denies history of peptic ulcers pancreatitis or gallstones. Denies any chest pain or shortness of breath. Denies any flank pain. Nursing Notes were reviewed. Limitations to history: None Outside historians: None REVIEW OF SYSTEMS Review of Systems Constitutional: Negative for chills and fever. HENT: Negative for ear pain and sore throat. Eyes: Negative for pain and visual disturbance. Respiratory: Negative for cough and shortness of breath. Cardiovascular: Negative for chest pain and palpitations. Gastrointestinal: Positive for abdominal pain, diarrhea, nausea and vomiting. Genitourinary: Negative for dysuria and hematuria. Musculoskeletal: Negative for arthralgias and back pain. Skin: Negative for color change and rash. Neurological: Negative for seizures and syncope. All other systems reviewed and are negative. Pertinent positives and negatives as per HPI. PAST MEDICAL HISTORY Past Medical History: Diagnosis Date Anxiety Depression GERD (gastroesophageal reflux disease) IBS (irritable bowel syndrome) SURGICAL HISTORY Past Surgical History: Procedure Laterality Date HIP SURGERY KNEE SURGERY CURRENT MEDICATIONS Previous Medications CITALOPRAM (CELEXA) 40 MG TABLET citalopram 40 mg tablet take 1 tablet by mouth once daily ELUXADOLINE (VIBERZI) 100 MG TABLET Viberzi 100 mg tablet take 1 tablet by mouth twice a day with food for IBS LOPERAMIDE (IMODIUM) 2 MG CAPSULE loperamide 2 mg capsule take 1 capsule by mouth three times a day OMEPRAZOLE (PRILOSEC) [address] CAPSULE omeprazole 40 mg capsule,delayed release take 1 capsule by mouth once daily ALLERGIES Bee venom, Lactose, and Other FAMILY HISTORY No family history on file. SOCIAL HISTORY Social History Socioeconomic History Marital status: Legally Tobacco Use Smoking status: Former Types: Cigarettes Smokeless tobacco: Never Substance and Sexual Activity Alcohol use: Not Currently Drug use: Never SCREENINGS PHYSICAL EXAM ED Triage Vitals [10/21/221954] Temp Heart Rate Resp BP 37.2 C (99 F) (!) 119 18 (!) 139/102 SpO2 Temp Source Heart Rate Source Patient Position 99 % Oral Monitor Sitting BP Location FiO2 (%) Right arm -- Physical Exam Vitals and nursing note reviewed. Constitutional: General: He is not in acute distress. Appearance: He is well-developed. He is ill-appearing. He is not toxic-appearing or diaphoretic. HENT: Head: Normocephalic and atraumatic. Mouth/Throat: Mouth: Mucous membranes are moist. Pharynx: Oropharynx is clear. Eyes: General: No scleral icterus. Extraocular Movements: Extraocular movements intact. Conjunctiva/sclera: Conjunctivae normal. Pupils: Pupils are equal, round, and reactive to light. Cardiovascular: Rate and Rhythm: Regular rhythm. Tachycardia present. Pulmonary: Effort: Pulmonary effort is normal. No respiratory distress. Breath sounds: Normal breath sounds. Abdominal: General: Abdomen is flat. Bowel sounds are normal. There is no distension. Palpations: Abdomen is soft. There is no pulsatile mass. Tenderness: There is abdominal tenderness in the right upper quadrant, right lower quadrant, epigastric area and periumbilical area. There is guarding. There is no rebound. Positive signs include McBurney's sign. Negative signs include Leung's sign. Hernia: No hernia is present. Genitourinary: Testes: Normal. Musculoskeletal: General: No swelling. Cervical back: Neck supple. Skin: General: Skin is warm and dry. Capillary Refill: Capillary refill takes less than 2 seconds. Neurological: General: No focal deficit present. Mental Status: He is alert and oriented to person, place, and time. Psychiatric: Mood and Affect: Mood normal. DIAGNOSTIC RESULTS Procedures/EKG: EKG was reviewed by myself. Physician EKG interpretation can be found in [facility] RADIOLOGY (Per Emergency Physician): CT abdomen pelvis suspect gastroenteritis. Interpretation per the Radiologist below, if available at the time of this note: CT abdomen pelvis w contrast Final Result 1. Suspect gastroenteritis. Report Dictated on Electronically Signed By: Jeffrey Carrillo Electronically Signed Date/Time: 10/21/2022 9:19 PM EDT ED BEDSIDE ULTRASOUND: Performed by ED Physician - none LABS: Labs Reviewed CBC WITH AUTO DIFFERENTIAL - Abnormal Result Value Auto WBC 6.5 RBC 5.72 Hemoglobin 17.6 Hematocrit 48.9 MCV 85.5 MCH 30.8 MCHC 36.0 RDW 12.0 Platelets 363 MPV 9.2 Neutrophils Relative 56.4 Lymphocytes Relative 26.5 Monocytes Relative 15.3 (*) Eosinophils Relative 1.1 Basophils Relative 0.5 Immature Grans % 0.2 (*) Neutrophils Absolute 3.7 Lymphocytes Absolute 1.7 Monocytes Absolute 1.0 (*) Eosinophils Absolute 0.1 Basophils Absolute 0.0 Immature Grans Absolute 0.0 COMPREHENSIVE METABOLIC PANEL - Abnormal SODIUM 129 (*) POTASSIUM 3.3 (*) CHLORIDE 105 CARBON DIOXIDE 14 (*) ANION GAP 11 UREA NITROGEN 17 CREATININE 0.81 GLUCOSE 131 (*) CALCIUM 8.4 AST (SGOT) 29 ALT 32 ALKALINE PHOSPHATASE 54 ALBUMIN 3.9 BILIRUBIN, TOTAL 0.9 TOTAL PROTEIN 6.8 eGFR >90.0 LIPASE - Normal LIPASE 109 LACTIC ACID, SEPSIS WITH REFLEX IF ELEVATED - Normal LACTIC ACID 0.9 All other labs were within normal range or not returned as of this dictation. EMERGENCY DEPARTMENT COURSE and DIFFERENTIAL DIAGNOSIS/MDM: Vitals: Vitals: 10/21/221954 BP: (!) 139/102 BP Location: Right arm Patient Position: Sitting Pulse: (!) 119 Resp: 18 Temp: 37.2 C (99 F) TempSrc: Oral SpO2: 99% Weight: 88.5 kg (195 lb) Height: 1.854 m (6' 1 ) 52-year-old male here with abdominal pain nausea vomiting diarrhea. Appears ill and is tachycardic. Differential includes cholecystitis pancreatitis mesenteric ischemia appendicitis dehydration metabolic disturbance colitis. Plan for CBC CMP lipase lactic acid IV fluids Zofran Pepcid Bentyl, CT abdomen pelvis for further evaluation. Diagnoses as of 10/21/222150 Viral gastroenteritis The patient presented with chief complaint of abdominal pain. The differential diagnosis associated with this patient's presentation includes as above. Our workup consisted of ordering/reviewing: As above. Patient is in agreement with this plan. Patient's care was impacted by IBS. Medications sodium chloride 0.9 % bolus 1,000 mL (0 mL IntraVENous Stopped 10/21/222117) ondansetron (Zofran) injection 4 mg (4 mg IntraVENous Given 10/21/222016) famotidine (Pepcid) injection 20 mg (20 mg IntraVENous Given 10/21/222018) dicyclomine (Bentyl) injection 20 mg (20 mg IntraMUSCular Given 10/21/222013) sodium chloride 0.9 % bolus 500 mL (0 mL IntraVENous Stopped 10/21/222147) REVAL: Patient reassessed after work-up completed. No significant lab disturbance except for slightly low bicarb indicative of likely dehydration but a normal lactic acid. CT suspect gastroenteritis without acute abnormality. Patient feeling improved. He is tolerating water intake now. His heart rate is now around 91. He is unable to give a stool sample here but will provide him a lab slip to give 1 outpatient if able and instructed follow-up with PCP. Given Zofran and Bentyl prescriptions. Return precautions given. CRITICAL CARE TIME None CONSULTS: None PROCEDURES: Unless otherwise noted below, none Procedures Patients symptoms are consistent with sepsis, severe sepsis, or septic shock (If yes use .sepsiscoremeasure ): no FINAL IMPRESSION 1. Viral gastroenteritis DISPOSITION Discharge 10/21/2022 09:31:39 PM PATIENT REFERRED TO: Sandyarleen Viera [address] [place] [id number] Schedule an appointment as soon as possible for a visit DISCHARGE MEDICATIONS: New Prescriptions DICYCLOMINE (BENTYL) 10 MG CAPSULE Take 1 capsule (10 mg) by mouth 3 times daily as needed (abdominal discomfort) for up to 5 days. ONDANSETRON ODT (ZOFRAN-ODT) 4 MG DISINTEGRATING TABLET Take 1 tablet (4 mg) by mouth every 8 hours as needed for nausea or vomiting for up to 7 days. (Comment: Please note this report has been produced using speech recognition software and may contain errors related to that system including errors in grammar, punctuation, and spelling, as well as words and phrases that may be inappropriate. If there are any questions or concerns please feel free to contact the dictating provider for clarification.) Adebayo Ball MD (electronically signed) Emergency Medicine Provider Adebayo Ball MD 10/21/222151 [facility] 02-11-2022 Note ORIGINAL EXAMINATION: 4 XRAY VIEWS OF THE LEFT RIBS 02/10/2022 11:35 am COMPARISON: Chest x-ray on 02/10/2022 HISTORY: ORDERING SYSTEM PROVIDED HISTORY: Reason for Exam: left rib injury FINDINGS: There is a mildly displaced fracture of the left 7th rib anterolaterally near the costochondral junction. A buckle fracture of left 8th rib near the costochondral junction is also present. Other ribs are unremarkable. Underlying left lung is well aerated with no acute abnormality. IMPRESSION: Fractures of left 7th and 8th ribs anterolaterally. Interpreted by: Dez Mendoza MD Preliminary Report By: Dez Mendoza MD Electronically signed By Dez Mendoza MD Dictated Date: 02/11/2022 2:44:23 AM Prelim Date: 02/11/2022 2:47:39 AM Sign Date: 02/11/2022 2:47:39 AM Ordering Provider: [facility] 02-10-2022 Note ORIGINAL EXAMINATION: TWO XRAY VIEWS OF THE CHEST02/10/2022 11:34 am COMPARISON: Chest radiograph 04/21/2021, 05/27/2020 HISTORY: ORDERING SYSTEM PROVIDED HISTORY: Reason for Exam: SOB on inspiration after fall on left side FINDINGS: The cardiomediastinal contours are normal. There is mild hyperinflation of the lungs, which may be due to air trapping, similar to prior. There is no significant consolidation, vascular congestion, pleural effusion, or pneumothorax. There are no acute osseous abnormalities. Mild degenerative changes of the thoracic spine. IMPRESSION: No acute radiographic findings. Mild hyperinflation of the lungs. I have personally reviewed the images of this examination agree with resident's findings and interpretation. Interpreted by: Flo Becerra MD Preliminary Report By: Adriano Ruiz Electronically signed By Flo Becerra MD Dictated Date: 02/10/2022 1:41:47 PM Prelim Date: 02/10/2022 3:41:14 PM Sign Date: 02/10/2022 3:41:14 PM Ordering Provider: [facility] 02-10-2022 Note ORIGINAL EXAMINATION: 4 XRAY VIEWS OF THE LEFT RIBS 02/10/2022 11:35 am COMPARISON: Chest x-ray on 02/10/2022 HISTORY: ORDERING SYSTEM PROVIDED HISTORY: Reason for Exam: left rib injury FINDINGS: There is a mildly displaced fracture of the left 7th rib anterolaterally near the costochondral junction. A buckle fracture of left 8th rib near the costochondral junction is also present. Other ribs are unremarkable. Underlying left lung is well aerated with no acute abnormality. IMPRESSION: Fractures of left 7th and 8th ribs anterolaterally. Interpreted by: Dez Mendoza MD Preliminary Report By: Dez Mendoza MD Electronically signed By Dez Mendoza MD Dictated Date: 02/11/2022 2:44:23 AM Prelim Date: 02/11/2022 2:47:39 AM Sign Date: 02/11/2022 2:47:39 AM Ordering Provider: [facility] 02-10-2022 Note ORIGINAL EXAMINATION: TWO XRAY VIEWS OF THE CHEST02/10/2022 11:34 am COMPARISON: Chest radiograph 04/21/2021, 05/27/2020 HISTORY: ORDERING SYSTEM PROVIDED HISTORY: Reason for Exam: SOB on inspiration after fall on left side FINDINGS: The cardiomediastinal contours are normal. There is mild hyperinflation of the lungs, which may be due to air trapping, similar to prior. There is no significant consolidation, vascular congestion, pleural effusion, or pneumothorax. There are no acute osseous abnormalities. Mild degenerative changes of the thoracic spine. IMPRESSION: No acute radiographic findings. Mild hyperinflation of the lungs. I have personally reviewed the images of this examination agree with resident's findings and interpretation. Interpreted by: Flo Becerra MD Preliminary Report By: Adriano Ruiz Electronically signed By Flo Becerra MD Dictated Date: 02/10/2022 1:41:47 PM Prelim Date: 02/10/2022 3:41:14 PM Sign Date: 02/10/2022 3:41:14 PM [facility] Future Appointments Appointment Date:06/25/2021 09:30:00 AM Scheduled Provider:SANDY VIERA Location:[facility] Appointment Type:PC OV Controlled Medication Future Scheduled TestsProstate Specific Antigen 01/07/21Lipid Profile 04/11/21Lipid Profile 04/09/21Complete Metabolic Panel 04/11/21Complete Metabolic Panel 04/09/21XR Chest 2 Views (PA & Lateral) 04/21/21 [facility] Evaluation + Plan note Future Appointments Appointment Date:03/17/2022 11:00:00 AM Scheduled Provider:SANDY VIERA Location:[facility] Appointment Type:PC OV Follow Up Future Scheduled TestsProstate Specific Antigen 03/17/22Lipid Profile 04/11/21Lipid Profile 04/09/21Lipid Profile 03/17/22Complete Metabolic Panel 04/11/21Complete Metabolic Panel 04/09/21Complete Metabolic Panel 03/17/22XR Chest 2 Views (PA & Lateral) 04/21/21 [facility] Evaluation + Plan note Future Appointments Appointment Date:09/15/2022 10:00:00 AM Scheduled Provider:SANDY VIERA Location:[facility] Appointment Type:PC OV Future Scheduled TestsProstate Specific Antigen 03/17/22Lipid Profile 03/17/22Complete Metabolic Panel 03/17/22 [facility] Evaluation + Plan note Future Appointments Appointment Date:05/19/2023 11:30:00 AM Scheduled Provider:EMCHE DOBBINS Location:[facility] Appointment Type:PC OV [facility] Evaluation note There may be informa tion available, but it has not been provided by the sender. [facility] Work Phone: [facility] Open fracture of tuft of distal phalanx of finger- Primary [facility] Narrative No data available for this section [facility] Hospital Discharge instructions No data available for this section [facility] Instructions* Instruction Description Start Date CompletedPatient advised to follow-up with Primary Care Physician for BMI management. 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 Advance Directives and Living Will Power of Baggage Agent Chief Complaint Chief Complaint Description Start Date right hip pain Preliminary chief co mplaint data, not yet signed by the author as of Additional Source Comments (unrecognized sect ion and content) No Status Records FoundNo Status Records FoundNo Status Records FoundNo Status Records FoundNo Status Records FoundNo Status Records Found INFORMATION SOURCE (unrecogn ized section and content) DATE CREATED AUTHOR AUTHOR'S ORGANIZ ATION 08/23/2019 [address] DATE CREATED AUTHOR AUTHOR'S ORGANIZ ATION 10/02/2019 [facility] DATE CREATED AUTHOR AUTHOR'S ORGANIZ ATION 01/31/2020 [facility] DATE CREATED AUTHOR AUTHOR'S ORGANIZ ATION 05/20/2023 [facility] DATE CREATED AUTHOR AUTHOR'S ORGANIZ ATION 05/24/2023 [facility] ([place]) Reason for Visit (unrecogniz ed section and content) Reason Comments Vomiting Abdominal Pain Reason Comments Finger Injury Right ring finger Care Team (unrecognized sect ion and content) Care Team Personnel Name: Lb Duarte Clermalik Palomares PT Position: P3 Scheduling - Vendor Quality Supervisor Advanced Member Role: Other Name: SANDY VIERA SOLUTION DESIGN AND ANALYSIS MANAGER-INFECTION CONTROL PREVENTIONIST Position: P4 Advanced Practice Nurse Med Service: Active Provider Member Role: Primary Care Physician Address: Address: [address] [place] [address] [place] Care Team Related Persons Name: ADRIANE LEVINE Name: BRIANLYSSAKARAN Address: Home [address] [place] [address] Address: Temporary [address] [facility] [address] [place], [place] [id number] Care Team Personnel Name: Lb Duarte Clerk Marielle PT Position: P3 Scheduling - Vendor Quality Supervisor Advanced Member Role: Other Name: SANDY VIERA SOLUTION DESIGN AND ANALYSIS MANAGER-INFECTION CONTROL PREVENTIONIST Position: P4 Advanced Practice Nurse Member Role: Primary Care Physician Address: Address: [address] [place] [id number] [place] [address] Care Team Related Persons Name: ADRIANE LEVINE Name: JANELLAWAISLYSSAKARAN Address: [place] [address] [place] [address] Address: Temporary [address] [facility] [address] [place] [id number] Name: NICA DEL VALLE Address: Home [address] [place], [place] [id number] Scheduled Active and Recently Administ ered Medications (unrecognized section and content) Scheduled Medication Order 05/16/2023 05/17/2023 05/18/2023 lidocaine (Xylocaine) 1 % injection 10 mL (COMPLETED) 10 mL, Infiltration, Once, On Wed05/18/23 at 1255, For 1 dose 1255 (Given by Other - Provider: Lo Rice RN - Reason: Administered by Other (Comment Required) - Comment: given by Dr. Vyas) Care Teams (unrecognized sec tion and content) Router Setter Relationship Specialty Start Date End Date NildaSandy downey [address] [place] [address] PCP - General Nurse Practitioner Family 10/21/22 Router Setter Relationship Specialty Start Date End Date Sandy Viera [address] [place] [address] PCP - General Nurse Practitioner Family 10/21/22 FOR RECORDS PERTAINING TO PATIENTS WHO ARE OR HAVE BEEN ENROLLED IN A CHEMICAL DEPENDENCY/SUBSTANCEABUSE PROGRAM, SOME INFORMATION MAY BE OMITTED. This clinical summary was aggregated from multiple sources. Caution should be exercised in using it in the provision of clinical care. This summary normalizes information from multiple sources, and as a consequence, information in this document may materially change the coding, format and clinical context of patient data. In addition, data may be omitted in some cases. CLINICAL DECISIONS SHOULD BE BASED ON THE PRIMARY CLINICAL RECORDS. [facility] [employer] [facility]. provides no warranty or guarantee of the accuracy or completeness of information in this document.
[2023-07-28 17:08] LABS: Partial Thromboplast Time 28.7 Seconds (24.1-36.2)
--- NOTE | 2023-07-28 17:15 | RAD_ITS ---
INDICATION: trauma EXAMINATION/TECHNIQUE: X-RAY - LEFT XR Knee Complete 4 Views COMPARISON: FINDINGS: SOFT TISSUES: No soft tissue swelling or gas. No radiopaque foreign body. BONES/JOINTS: No acute fracture or subluxation.. Normal alignment. Preservation of the joint space.. No sclerotic or destructive changes observed. RAD/Knee 4 or More Views IMPRESSION: Negative. Electronically Signed: Brandon Turcios DO at 17:49 EST ,
--- NOTE | 2023-07-28 17:15 | RAD_ITS ---
INDICATION: TRAUMA EXAMINATION/TECHNIQUE: X-RAY - RIGHT XR Knee Complete 4 Views COMPARISON: FINDINGS: SOFT TISSUES: No soft tissue swelling or gas. No radiopaque foreign body. Minimal effusion. BONES/JOINTS: No acute fracture or subluxation.. Normal alignment. Preservation of the joint space.. No sclerotic or destructive changes observed. RAD/Knee 4 or More Views IMPRESSION: Minimal effusion.. Electronically Signed: Brandon Turcios DO at 18:28 EST ,
[2023-07-28 18:00] VITALS: BP 144/97; PULSE 81; RESP 15; O2SAT 97
[2023-07-28 18:55] VITALS: BP 131/91; PULSE 77; RESP 14; O2SAT 99
== END 2023-07-28 19:00 | disposition home or self-care (01) ==
PROVIDERS: Emergency Provider Emergency Medicine; PCP Nurse Practitioner Family; Visit Provider Emergency Medicine
DX: S80.01XA Contusion of right knee, initial encounter (principal); S80.02XA Contusion of left knee, initial encounter; S39.012A Strain of muscle, fascia and tendon of lower back, initial encounter; G47.30 Sleep apnea, unspecified; V54.5XXA Driver of pick-up truck or van injured in collision with heavy transport vehicle or bus in traffic accident, initial encounter; Z86.73 Personal history of transient ischemic attack (TIA), and cerebral infarction without residual deficits; Z87.891 Personal history of nicotine dependence
CPT/HCPCS: 70450; 71260; 72125; 73564; 74177; 80048; 85025; 85610; 85730; 96374; 96375; 99284; J7030; Q9967; A4216; J2405

== ENCOUNTER 2024-01-12 09:21 | Day surgery (SDC) | payer MEDICAID, SELFPAY ==
[2024-01-12] VITALS (7 sets, daily range): BP systolic 103–124; BP diastolic 71–96; PULSE 72–91; RESP 12–18; TEMP 36.3–36.5; O2SAT 96–99; BMI 22.1
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
[2024-01-12] MEDS: Lactated Ringers 1,000 ML 15 ML IV (09:48)
--- NOTE | 2024-01-12 09:49 | PRE.ANES_ITS ---
ASA Classification* ASA Classification ASA Classification: 3 Assessment & Plan Anesthesia* Anesthesia Assessment Anesthesia Assessment: Discussed sedation and/or anesthesia options, risks, benefits, and alternatives with patient/parents/legal guardian/POA. Questions invited. The patient/parents/legal guardian/POA seems to understand and agrees to proceed with anesthesia plan. Reviewed the physical assessment, medical history, allergy history and patient home medications list prior to surgery/procedure/anesthetic and documented any changes. Performed airway and anesthesia risk assessments. Anesthesia Type Anesthesia Type: MAC (see written pre anesthesia record for full assessment) Anesthesia Focused Assessment* Temperature: 97.3 F Pulse Rate: 78 Blood Pressure: 124/96 Respiratory Rate: 16 Pulse Ox: 99 Airway Assessment Mouth opens: >3 cm Mallampati Score: II Focused Labs Anesthesia Preop lab: CBC WBC 7.1 K/mm3 (4.4-11.0) 07/28/23 14:29 RBC 4.63 M/mm3 (4.6-6.2) 07/28/23 14:29 Hgb 14.5 g/dL (13.0-16.5) 07/28/23 14:29 Hct 43.3 % (40-54) 07/28/23 14:29 Plt Count 269 K/mm3 (150-450) 07/28/23 14:29 CHEMISTRY Potassium 3.9 mmol/L (3.5-5.1) 07/28/23 14:29 Sodium 141 mmol/L (136-145) 07/28/23 14:29 BUN 9 mg/dL (7-18) 07/28/23 14:29 Creatinine 0.91 mg/dL (0.70-1.30) 07/28/23 14:29 Glucose 94 mg/dL (74-106) 07/28/23 14:29 TSH 0.57 uIU/mL (0.358-3.74) 02/10/23 15:23 COAG PT 13.1 SECONDS (11.7-14.9) 07/28/23 14:29 Pre-Assessment Diagnosis/Proposed Procedure Planned Operative Procedure(s): colonoscopy with banding of hemmoroid, Botox Anesthesia History 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 When Was Last Pacemaker Check QUESTION #4 FULL TEXT: You/Your Family Experience fever (hyperthermia) with Anesthesia Last Oral Intake Last Oral intake: Last Oral Intake NPO since 00:00 01/12/24 09:39 Meds taken in AM with sips of water? Meds patient instructed to take am of surgery PONV PONV - salesforce business analyst: PONV - salesforce business analyst Female No 01/10/24 08:29 HX of Motion Sickness No 01/10/24 08:29 HX of N/V After Surgery No 01/10/24 08:29 Non-Smoker No 01/10/24 08:29 Duration of Surgery greater No 01/10/24 08:29 than 60 minutes Number of Risk Factors PONV Score Height & Weight Height & Weight: Anesthesia: Height & Weight Height 6 ft 1 in 01/12/24 09:39 Weight: 76.204 kg 01/12/24 09:39 Body Mass Index (BMI) 22.1 01/12/24 09:39 Respiratory Assessment Respiratory Assessment - salesforce business analyst: Respiratory Tract Infection Hx - salesforce business analyst Hx Respiratory Tract Infection No 01/10/24 08:29 STOP Sleep Apnea STOP Sleep Apnea - salesforce business analyst: STOP Sleep Apnea - salesforce business analyst Hx Hypertension No 01/10/24 08:29 Hx Sleep Apnea Yes 01/10/24 08:29 CPAP No 01/10/24 08:29 BIPAP No 01/10/24 08:29 Do you snore loudly (louder than talking or can be heard Do you often feel tired/ fatigued/ sleepy during daytime? Has anyone observed you stop breathing during sleep? STOP Results Positive 01/10/24 08:29 QUESTION #5 FULL TEXT : Do you snore loudly (louder than talking or can be heard through closed doors)? 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 Specify any problems Hx of Preganancy in last 3 N/A 01/10/24 08:29 Months Nurse Filling Out Transfusion SFRANTZ 01/10/24 08:29 & Questions: Date: 01/10/24 01/10/24 08:29 Time: 08:33 01/10/24 08:29 Patient unable to answer at this time (ie. confused, unrespo /Reproduction History /Reproductive History - salesforce business analyst: /Reproductive Hx- salesforce business analyst Hx Now No 01/10/24 08:29 Gestational Age (in weeks): EDC: Hx Hx Para Hx Section SAB No 01/10/24 08:29 Active Medications Active Medications: Current Medications Generic Name Dose Route Start Last Admin Trade Name Freq PRN Reason Stop Dose Admin Botulinum Toxin Type A 100 units 01/12/24 16:45 Botulinum Toxin A 100 Units Vial IJ 01/12/24 16:46 PREOP ONE Lactated Ringer's 1,000 mls @ 15 mls/hr 01/12/24 09:30 01/12/24 09:48 IV 15 mls/hr .Q48H GEMMA Administration PFSH Medical History Injury of back History of GI bleed Wears hearing aid Wears dentures Wears glasses Alcohol use Arthritis Back pain Injury of head and neck Former smoker Sleep apnea MGUS (monoclonal gammopathy of unknown significance) Hip pain Elevated liver enzymes Abdominal cramping Anticardiolipin antibody positive Antithrombin 3 deficiency High cholesterol Hearing problem Migraines Headache Bone fracture Back problem Alcohol abuse Proteinuria Gastric reflux Diarrhea Carotid atherosclerosis Depression Anxiety TIA (transient ischemic attack) rotator cuff surgery, left Tinnitus Hypoglycemia IBS (irritable bowel syndrome) Home Medications ?Medication ?Instructions ?Recorded ?Last Taken ?Type diclofenac sodium 1 % topical gel 4 g topical .QID PRN Neck 08/03/23 Unknown Rx pain/stiffness #100 grams lipase 60,000-protease 1 cap PO TID 30 days #120 caps 08/20/23 Unknown Rx 189,600-amylase 252,600 unit capsule, delay rel (Zenpep) Allergy/AdvReac Type Severity Reaction Status Date / Time bee venom protein (honey Allergy Severe Anaphylaxis Verified 01/12/24 09:38 bee) (bees) cat dander Allergy Anaphylaxis Verified 01/12/24 09:38 procaine HCl (From Novocain) AdvReac Vomiting Verified 01/12/24 09:38 Family History Father Lung cancer Alcohol abuse Mother Cancer Surgical History H/O: knee surgery History of rotator cuff surgery Normal colonoscopy (~04/22/18) H/O inguinal hernia repair ulnar nerve surgery History of hip surgery Social History household members: children housing: house current occupational status: employed Smoking Status: Former smoker pack-years: 25 second hand exposure: No alcohol intake: current alcohol intake frequency: 3 or more drinks per day Alcohol type: beer details: daily substance use type: does not use what type of physical activity do you participate in: none blair/mu-ism: Other seatbelt use: sometimes Review of Systems (Anesthesia) ROS Narrative System reviewed and no additional complaints, except as documented.
[2024-01-12] MEDS: 0.9% Normal Saline (Pres. free 10 ML Vial (10:28)
[2024-01-12] MEDS: 0.9% Saline Lock 10 ML Syringe IV (10:28)
--- NOTE | 2024-01-12 10:30 | COLBX_PTH ---
PATIENT: JULIANNA DEL VALLE III LOC: EN U#:[id number] AGE/SX: 53/M ROOM: RE01/12/[address]: Dr. Harmeet Sauceda DO : 1970 BED: DIS: 01/12/2024 SPEC #: [id number] RECD: 01/12/24 13:47 STATUS: DELFINA REEdith #: [id number] ROBERTO: 01/12/24 10:[address]: Harmeet Sauceda DEPT: SURGICAL PATHOLOGY RECD BY: Miranda Hill ENTERED: 01/14/24 07:14 SP TYPE: COLON BX OT DR: Sandy Saleh, TOEING STOCKINGS-C Tissues: A - Ileum, NOS B - COLON BIOPSY Procedures: Surgery Specimen Level IV HEADER OPERATION: Colonoscopy, hemorrhoid banding, Botox, biopsy, APC rectum PRE-OP DIAGNOSIS: Diarrhea, rectal bleeding TISSUE SUBMITTED: A- Terminal ileum, B- Random colon biopsies MICROSCOPIC DIAGNOSIS A. Terminal ileum, biopsy: Fragments of small intestinal mucosa, no pathologic diagnosis. B. Colon, random biopsy: Fragments of colonic mucosa, no pathologic diagnosis. / 01/17/2024 MICROSCOPIC DESCRIPTION Slides are reviewed. GROSS DESCRIPTION A. Received in fixative is one container labeled with the patient's name and designated Terminal ileum biopsy. The specimen consists of multiple irregular fragments of light delacruz soft tissue that in aggregate measure 1.8 x 0.5 x 0.1 cm. The specimen is totally submitted in one cassette. B. Received in fixative is one container labeled with the patient's name and designated Random colon biopsy. The specimen consists of multiple irregular fragments of light delacruz soft tissue that in aggregate measure 2.0 x 0.5 x 0.1 cm. The specimen is totally submitted in one cassette. [facility] 01/14/2024 TC:4 CPT:80488n1
--- NOTE | 2024-01-12 11:37 | PCM.POST.ANE ---
Anesthesia: Postop Eval I Current Vital Signs Temperature: 97.6 F Pulse Rate: 84 Blood Pressure: 105/71 Respiratory Rate: 12 Pulse Ox: 97 Oxygen Delivery Method: Room Air Assessment Airway patent: Yes Spontaneous unlabored respirations: Yes Mental status: Awake and Calm nausea: No Vomiting: No Anesthesia Complication: No Fluid Hydration Crystalloid volume administer (ml): 1,400 Total IV fluid infused: 1,400 Progress Note Anesthesia document: Postop Eval 1 completed: Yes
--- NOTE | 2024-01-12 11:41 | OP.COLON_ITS ---
Patient Name: Michael Noble Procedure Date: 01/12/2024 10:28 AM Date of : 1970 Age: 53 Procedure: Colonoscopy Indications: Clinically significant diarrhea of unexplained origin, Hematochezia Providers: Harmeet Sauceda DO Medicines: Monitored Anesthesia Care Patient Profile: This is a 53 year old male. Refer to note in patient chart for documentation of history and physical. Last Colonoscopy: 1 year ago. Complications: No immediate complications. Procedure: Pre-Anesthesia Assessment: - Prior to the procedure, a History and Physical was performed, and patient medications and allergies were reviewed. The patient is competent. The risks and benefits of the procedure and the sedation options and risks were discussed with the patient. All questions were answered and informed consent was obtained. Patient identification and proposed procedure were verified by the physician in the pre-procedure area. Mental Status Examination: alert and oriented. Airway Examination: normal oropharyngeal airway and neck mobility. Respiratory Examination: clear to auscultation. CV Examination: normal. Prophylactic Antibiotics: The patient does not require prophylactic antibiotics. Prior Anticoagulants: The patient has taken no anticoagulant or antiplatelet agents. ASA Grade Assessment: II - A patient with mild systemic disease. After reviewing the risks and benefits, the patient was deemed in satisfactory condition to undergo the procedure. The anesthesia plan was to use monitored anesthesia care (MAC). Immediately prior to administration of medications, the patient was re-assessed for adequacy to receive sedatives. The heart rate, respiratory rate, oxygen saturations, blood pressure, adequacy of pulmonary ventilation, and response to care were monitored throughout the procedure. The physical status of the patient was re-assessed after the procedure. After I obtained informed consent, the scope was passed under direct vision. Throughout the procedure, the patient's blood pressure, pulse, and oxygen saturations were monitored continuously. The colonoscope was introduced through the anus and advanced to the cecum, identified by appendiceal orifice and ileocecal valve. The colonoscopy was performed without difficulty. The patient tolerated the procedure well. The quality of the bowel preparation was adequate. The terminal ileum, ileocecal valve, appendiceal orifice, and rectum were photographed. Scope In: 10:46:37 AM Scope Withdrawal Time 0 hours 39 minutes 43 seconds Scope Out: 11:30:31 AM Total Procedure Duration Time 0 hours 43 minutes 54 seconds Findings: An anal fissure was found on perianal exam. Bleeding external and internal hemorrhoids were found during retroflexion. The hemorrhoids were Grade II (internal hemorrhoids that prolapse but reduce spontaneously). A hemorrhoid was isolated with endoscopy. The ZACHERY ligator was positioned over the hemorrhoid at the left lateral position. Suction was applied and one rubber band was placed over the hemorrhoid. This was checked to make certain that the muscularis was free of the band. Post-banding digital rectal exam showed band in good position. Mild oozing of blood was present. A 9 mm anal fissure was found in the anal canal. Area was successfully injected with 100 units botulinum toxin. Anal papilla(e) were hypertrophied. Coagulation for bleeding prevention using heater probe was successful. Estimated blood loss was minimal. A few small-mouthed diverticula were found in the recto-sigmoid colon and hepatic flexure. An area of mildly congested mucosa was found at the splenic flexure, in the transverse colon, at the hepatic flexure and in the ascending colon. Biopsies were taken with a cold forceps for histology. Verification of patient identification for the specimen was done. Estimated blood loss was minimal. Patchy mild inflammation characterized by congestion (edema) and erosions was found in the distal ileum. Biopsies were taken with a cold forceps for histology. Verification of patient identification for the specimen was done. Estimated blood loss was minimal. The exam was otherwise without abnormality on direct and retroflexion views. Impression: - Anal fissure found on perianal exam. - Bleeding external and internal hemorrhoids. Banded. - Anal fissure. Injected with botulinum toxin. - Anal papilla(e) were hypertrophied. Treated with a heater probe. - Diverticulosis in the recto-sigmoid colon and at the hepatic flexure. - Congested mucosa at the splenic flexure, in the transverse colon, at the hepatic flexure and in the ascending colon. Biopsied. - Mild inflammation was found in the ileum secondary to ileitis. Biopsied. - The examination was otherwise normal on direct and retroflexion views. Recommendation: - Discharge patient to home. - Resume previous diet. - Continue present medications. - Await pathology results. - Repeat colonoscopy in 5 years for surveillance. Procedure Code(s): --- Professional --- 11756, 59, Colonoscopy, flexible; with control of bleeding, any method 39120, 51, Colonoscopy, flexible; with band ligation(s) (eg, hemorrhoids) 93732, Colonoscopy, flexible; with biopsy, single or multiple 80653, 59, Colonoscopy, flexible; with directed submucosal injection(s), any substance CPT copyright 2021 [employer] [employer]. All rights reserved. The codes documented in this report are preliminary and upon leave specialist review may be revised to meet current compliance requirements. Harmeet Sauceda DO 01/12/2024 11:40:55 AM This report has been signed electronically. Number of Addenda: 0 Note Initiated On: 01/12/2024 10:28 AM
--- NOTE | 2024-01-12 11:41 | OP.CCLET_ITS ---
01/12/2024 Sandy Saleh Re : Colonoscopy procedure for Michael Noble Dear Therese This procedure was performed on Friday, January 12, 2024. My impressions and recommendations are as follows: Impressions : - Anal fissure found on perianal exam. - Bleeding external and internal hemorrhoids. Banded. - Anal fissure. Injected with botulinum toxin. - Anal papilla(e) were hypertrophied. Treated with a heater probe. - Diverticulosis in the recto-sigmoid colon and at the hepatic flexure. - Congested mucosa at the splenic flexure, in the transverse colon, at the hepatic flexure and in the ascending colon. Biopsied. - Mild inflammation was found in the ileum secondary to ileitis. Biopsied. - The examination was otherwise normal on direct and retroflexion views. Recommendations : - Discharge patient to home. - Resume previous diet. - Continue present medications. - Await pathology results. - Repeat colonoscopy in 5 years for surveillance. My findings are described in the full procedure note, which is enclosed. If I can be of further assistance, please feel free to contact me at . Sincerely, Harmeet Sauceda, 01/12/2024 11:40:55 AM This report has been signed electronically.
[2024-01-12] MEDS: Botulinum Toxin A 100 Units Vial IJ (12:54)
--- NOTE | 2024-01-12 14:50 | PCM.POSTANE2 ---
Anesthesia Postop Eval I Sum Postop Eval Completion status Anesthesia document: Postop Eval 1 completed: Yes Anesthesia Postop Eval I Summary Anesthesia Postop Eval I Summary: Anesthesia Postop Eval I: Assessment Summary Airway patent Yes 01/12/24 11:47 [email or web address] Spontaneous unlabored Yes 01/12/24 11:47 [email or web address] respirations Mental status Awake,Calm 01/12/24 11:47 [email or web address] nausea No 01/12/24 11:47 [email or web address] Vomiting No 01/12/24 11:47 [email or web address] Anesthesia Postop Eval I: Fluid Summary Crystalloid volume administer 1,400 01/12/24 11:47 [email or web address] (ml) Colloids volume administered ( ml) Blood Product volume administered (ml) Total IV fluid infused 1,400 01/12/24 11:47 [email or web address] Anesthesia Postop Eval I: Summary Notes Anesthesia Complication No 01/12/24 11:47 [email or web address] Anesthesia Complication Comment: Post-operative progress note Anesthesia: Postop Eval II Evaluation Mental status: Awake and Calm Pain Level: 0 nausea: No Vomiting: No Complications Anesthesia Complication: No
== END 2024-01-12 12:24 | disposition home or self-care (01) ==
LOC: EN 09:22 → AC 09:24
PROVIDERS: PCP Nurse Practitioner Family; Referring Provider Nurse Practitioner Family; Visit Provider Internal Medicine Gastroenterology
PROC: 0DJD8ZZ Inspection of Lower Intestinal Tract, Via Natural or Artificial Opening Endoscopic (ICD-10-PCS; CPT 45378; principal; 2024-01-12 10:25)
DX: K52.9 Noninfective gastroenteritis and colitis, unspecified (principal); K64.1 Second degree hemorrhoids; K57.90 Diverticulosis of intestine, part unspecified, without perforation or abscess without bleeding; K60.2 Anal fissure, unspecified; K62.89 Other specified diseases of anus and rectum; K63.89 Other specified diseases of intestine; Z86.73 Personal history of transient ischemic attack (TIA), and cerebral infarction without residual deficits
CPT/HCPCS: 45380; 45382; 45398; 45381; 88305; J7120; A4216; J2405; J3490

== ENCOUNTER → 2025-03-13 | Outpatient (CLI) | payer MEDICAID, SELFPAY ==
[2025-03-13 10:35] LABS: Hematocrit 44.2 % (40-54); Hemoglobin 14.8 g/dL (13.0-16.5); Mean Corp Hgb Conc 33.5 g/dL (32-36); Mean Corpuscular Volume 94.0 fL (80-94); Mean Platelet Vol. 9.6 fl (6.2-12.0); Platelet Count 253 K/mm3 (150-450); RBC Distribution Width CV 11.9 % (11.6-14.6); RBC Distribution Width SD 41.8 fl (35.1-43.9); Red Blood Count 4.70 M/mm3 (4.6-6.2); White Blood Count 6.2 K/mm3 (4.4-11.0)
[2025-03-13 11:35] LABS: AST(SGOT) 31 U/L (<=37); Alanine Aminotransfer ALT/SGPT 26 U/L (<=46); Albumin, Serum 4.0 g/dL (3.5-5.0); Alkaline Phosphatase 52 U/L (40-129); Anion Gap 9 (5-15); BUN 13 mg/dL (4-19); BUN/Creat Ratio 17.3 RATIO (10-20); Calcium,Total 9.4 mg/dL (7.6-11.0); Carbon Dioxide 22.6 mmol/L (21.0-32.0); Chloride 108 mmol/L (98-108); Cholesterol 180 mg/dL (<=200); Globulin 2.1 g/dL (2.2-4.2); Glucose 110 mg/dL (70-99); Low Density Lipoprotein Calc. 93 mg/dL; Potassium 4.9 mmol/L (3.3-5.1); Triglycerides 61 mg/dL; Very Low Density Lipoprotein 12 mg/dL (5-40); cholesterol:hdl ratio screen 2.42
== END | disposition home or self-care (01) ==
LOC: MTLAB 08:25
PROVIDERS: PCP Nurse Practitioner Family; Referring Provider Psychiatry & Neurology Neurology; Visit Provider Psychiatry & Neurology Neurology
DX: I65.29 Occlusion and stenosis of unspecified carotid artery (principal); G43.009 Migraine without aura, not intractable, without status migrainosus
CPT/HCPCS: 36415; 80053; 80061; 85027

== ENCOUNTER → 2025-03-19 | Outpatient (CLI) | payer OTHER, MEDICAID, SELFPAY ==
--- NOTE | 2025-03-19 14:20 | CDU_ITS ---
Reason For Study Reason For Study: Stenosis Rt. Velocities/BP Lt. Velocities/BP Prox CCA 89/21 cm/sec. Prox CCA 116/38 cm/sec. Mid CCA 93/25 cm/sec. Mid CCA 118/37 cm/sec. Dist CCA 91/29 cm/sec. Dist CCA 83/31 cm/sec. Prox ICA 105/30 cm/sec. Prox ICA 111/30 cm/sec. Mid ICA 75/32 cm/sec. Mid ICA 64/29 cm/sec. Dist ICA 79/35 cm/sec. Dist ICA 62/30 cm/sec. Rt. ICA/CCA = 1.1. Lt. ICA/CCA = 0.9. Prox ECA 96/18 cm/sec. Prox ECA 118/25 cm/sec. Rt. Vert. 53/19 cm/sec. Lt. Vert. 35/14 cm/sec. Right Extracranial There is homogeneous, smooth atherosclerotic plaque noted in the right common carotid artery. There is intimal thickening but no significant atherosclerotic plaque noted in the right internal carotid artery. There is intimal thickening but no significant atherosclerotic plaque noted in the right external carotid artery. Antegrade flow is noted in the right vertebral artery. Left Extracranial There is heterogeneous, irregular atherosclerotic plaque noted in the left common carotid artery. There is heterogeneous, irregular atherosclerotic plaque noted in the left internal carotid artery. There is intimal thickening but no significant atherosclerotic plaque noted in the left external carotid artery. Antegrade flow is noted in the left vertebral artery. Procedure Carotid Duplex 08465. This is a Carotid Duplex examination using B-mode, color flow and specral Doppler. Exam performed in department. VL/Carotid Duplex Ultrasound Interpretation Summary No significant atherosclerotic plaque or stenosis noted in the right internal c arotid artery. Mild (<50%) stenosis left extracranial internal carotid. Flow within the vertebral arteries is antegrade bilaterally. Ordering Physician: Sukhdev Malcolm Referring Physician: Sandy Saleh Performed By: Iram Fitzpatrick, RDCS, RVT
== END | disposition home or self-care (01) ==
LOC: CVS 14:14
PROVIDERS: PCP Nurse Practitioner Family; Referring Provider Psychiatry & Neurology Neurology; Visit Provider Psychiatry & Neurology Neurology
DX: I65.29 Occlusion and stenosis of unspecified carotid artery (principal); G45.9 Transient cerebral ischemic attack, unspecified
CPT/HCPCS: 93880